=== PATIENT | female | born 1990 | race Two or more races ===

== ENCOUNTER 2016-08-22 07:05 | Emergency (ER) | payer OTHER ==
[2016-08-22 08:11] LABS: MEAN CORPUSCULAR HEMOGLOBIN 27.4 pg (27.0-33.0); MEAN CORPUSCULAR HGB CONC 32.4 g/dl (32.0-36.5); MEAN CORPUSCULAR VOLUME 84.7 fl (80.0-96.0); RED CELL DISTRIBUTION WIDTH 13.7 % (11.5-14.5); WHITE BLOOD COUNT 13.8 K/mm3 (4.0-10.0)
--- NOTE | 2016-08-22 09:10 | REP ---
FIRST TRIMESTER ULTRASOUND: Real-time sonographic evaluation of the gravid uterus performed. Transabdominal and endovaginal technique utilized. Large irregular gestational sac is seen in the endometrial cavity. Small pole is present measuring 6 mm. This would correspond to an estimated gestational age of 6 weeks 3 days. There is no heart motion. The gestational sac is much larger than expected for a 6 week gestation. Prior study of 07/15/2016 showed a living intrauterine gestation 6 weeks of age with heart rate of 93 beats per minute. Current findings are compatible with demise. Ovaries are normal in size and echotexture, right ovary measuring 3.1 x 2.1 x 2.1 cm and left ovary 2.8 x 2.0 x 2.0 cm. Blood flow is seen in each ovary with duplex Doppler evaluation, with no torsion. There is no adnexal mass or free fluid. IMPRESSION: Intrauterine demise. Large irregular gestational sac contains a pole 6 mm in length with no heart motion. Prior study of 07/15/2016 showed a living intrauterine gestation, estimated age 6 weeks with heart rate 93 beats per minute. Signed by Melquiades Jiang MD 08/22/2016 05:18 P
--- NOTE | 2016-08-22 13:44 | EDDOCDS ---
Nurse's Notes [facility] Name: Karla Greenwood Age: 25 yrs Sex: Female : 1990 Arrival Date: 08/22/2016 Time: 07:05 Bed 5 Private MD: Diagnosis: Missed Presentation: 08/22 07:14 Presenting complaint: Patient states: 11 weeks , cramping since last night mlb1 vaginal bleeding scant amount began this am. Risk factors: The patient reports no loss of conciousness prior to arrival. This patient has not had a hysterectomy. This patient has not begun menopause. Adult Sepsis Screening: The patient does not have new or worsening altered mentation. Patient's respiratory rate is less than 22. Systolic blood pressure is greater than 100. Patient has a qSOFA score of 0- Negative Sepsis Screen. Suicide/Homicide risk assessment- the patient denies having any suicidal and/or homicidal ideations and does not present with any other emotional, behavioral or mental health complaints. Status: The patient is a dependent. Transition of care: patient was not received from another setting of care. 07:14 Acuity: AMCKENZIE Level 3 mlb1 07:14 Method Of Arrival: Walkin/Carried/Asstd mlb1 Triage Assessment: 07:16 General: Appears in no apparent distress, Behavior is appropriate for age, cooperative. mlb1 Pain: Denies pain. HIV screening NA for this visit Offered previously. : Reports vaginal bleeding that is spotty. 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 Vitamin Oral once daily 2. Zofran (as hydrochloride) 4 mg Oral tab 4 mg every 8 hours as needed - PMHx: none; - PSHx: acl right knee; bone spur left ankle; D & C; - Social history: Smoking status: Patient states was never smoker of tobacco. No barriers to communication noted, The patient speaks fluent Rwandan, Speaks appropriately for age. - Family history: Not pertinent. - : The pt / caregiver states he / she is not on anticoagulants. Home medication list is obtained from the patient. - Exposure Risk Screening:: None identified. Screenin:54 Screening information is obtained from the patient. Fall risk: No risks identified. kr3 Assistance ADL's: requires no assistance with activities of daily living. Abuse/DV Screen: The patient / caregiver reports he/she is: not in a situation that causes fear, pain or injury. Nutritional screening: No deficits noted. Advance Directives: Currently, there is no health care proxy. home support is adequate. Assessment: 07:54 General: Appears in no apparent distress, comfortable, Behavior is appropriate for age, kr3 cooperative. Neurological: No deficits noted. Respiratory: Respiratory effort is even, unlabored. : deferred to provider Reports vaginal bleeding that is spotty. 08:56 Reassessment: Patient appears in no apparent distress at this time. awaiting test kr3 results. 09:15 Reassessment: Patient appears in no apparent distress at this time. kr3 10:10 Adult Sepsis Screening: The patient does not have new or worsening altered mentation. kr3 Patient's respiratory rate is less than 22. Systolic blood pressure is greater than 100. Patient has a qSOFA score of 0- Negative Sepsis Screen. 10:22 Reassessment: Patient appears in no apparent distress at this time. Pain: Location: kr3 abdomen Pain currently is 7 out of 10 on a pain scale. Quality of pain is described as crampy. 11:15 Reassessment: Patient appears in no apparent distress at this time. kr3 12:20 Reassessment: Patient appears in no apparent distress at this time. reports cramps are kr3 intermittent, at present none at worse 8/10. Reports has been up to bathroom times 1 and noticed bleeding on tissue after urinating. 12:21 Adult Sepsis Screening: The patient does not have new or worsening altered mentation. kr3 Patient's respiratory rate is less than 22. Systolic blood pressure is greater than 100. Patient has a qSOFA score of 0- Negative Sepsis Screen. Vital Signs: 07:17 BP 133 / 89; Pulse 80; Resp 16; Temp 97.6(TE); Pulse Ox 97% on R/A; Weight 81.65 kg mlb1 (R); Height 5 ft. 4 in. (162.56 cm) (R); Pain 0/10; 12:20 BP 137 / 83; Pulse 90; Resp 16; Temp 98.7(O); Pulse Ox 98% on R/A; Pain 0/10; kr3 13:41 BP 154 / 99; Pulse 80; Resp 16; Temp 97.0; jmk 07:17 Body Mass Index 30.90 (81.65 kg, 162.56 cm) [facility] Vitals: 07:17 Log In Time: August 22, 2016 at 07:05. [facility] ED Course: 07:07 Patient visited by Lincoln Kapadia Reg. pm4 07:07 Patient moved to Waiting pm4 07:14 Patient visited by Emre Matias, COURT. mlb1 07:15 Triage Initiated mlb1 07:17 Patient visited by Emre Matias, COURT. mlb1 07:40 Patient moved to 5 sd1 07:41 Carol Del Rio MD is Attending Physician. sd1 07:42 Patient visited by Carol Del Rio MD. sd1 07:54 The patient / caregiver is instructed regarding the plan of care and ED course. Patient cali has correct armband on for positive identification. Placed in gown. Bed in low position. Call light in reach. 08:01 Patient visited by Brendan Bourne PCA. jlf 08:01 Patient visited by Brendan Bourne PCA. jlf 08:01 Complete Blood Count Sent. jlf 08:01 Hcg, Serum Quantitative Sent. jlf 08:01 Type & Screen Sent. jlf 08:30 Assist provider with pelvic exam: Specimens sent to lab. Performed by Carol Del Rio MD Patient tolerated well. 08:35 Assist provider with pelvic exam: Set up pelvic tray. Specimens sent to lab. jlf 08:37 Patient visited by Brendan Bourne PCA. jlf 08:37 Wet Prep Sent. jlf 08:37 GC & Chlamydia Amplification Sent. jlf 08:38 Patient visited by Brendan Bourne PCA. jlf 08:38 Urinalysis Sent. jlf 08:38 Urine Culture Sent. jlf 09:10 Patient visited by Brendan Bourne PCA. jlf 09:46 US 1st trimester Returned. EDMS 09:46 TRANSVAGINAL US Returned. EDMS 09:51 Patient visited by Brendan Bourne PCA. jlf 10:22 Patient visited by Lucy Loaiza RN. kr3 11:23 [facility] Payment Agreement was scanned into [employer] and attached to record. lg 11:33 Patient visited by Brendan Bourne PCA. jlf 11:54 Patient visited by Brendan Bourne PCA. jlf 12:18 Patient visited by Brendan Bourne PCA. jlf 13:07 Patient visited by Lucy Loaiza RN. kr3 13:32 Martin, OB is Referral Physician. sd1 13:41 No IV's were initiated during this patient's visit. patk Order Results: Lab Order: Complete Blood Count; SPEC'M 08/22/16 07:54 Test: WHITE BLOOD COUNT; Value: 13.8; Range: 4.0-10.0; Abnormal: Above high normal; Units: K/mm3; Status: F Test: RED BLOOD COUNT; Value: 4.59; Range: 4.00-5.40; Units: M/mm3; Status: F Test: HEMOGLOBIN; Value: 12.6; Range: 12.0-16.0; Units: g/dl; Status: F Test: HEMATOCRIT; Value: 38.9; Range: 36.0-47.0; Units: %; Status: F Test: MEAN CORPUSCULAR VOLUME; Value: 84.7; Range: 80.0-96.0; Units: fl; Status: F Test: MEAN CORPUSCULAR HEMOGLOBIN; Value: 27.4; Range: 27.0-33.0; Units: pg; Status: F Test: MEAN CORPUSCULAR HGB CONC; Value: 32.4; Range: 32.0-36.5; Units: g/dl; Status: F Test: RED CELL DISTRIBUTION WIDTH; Value: 13.7; Range: 11.5-14.5; Units: %; Status: F Test: PLATELET COUNT, AUTOMATED; Value: 197; Range: 150-450; Units: k/mm3; Status: F Lab Order: Hcg, Serum Quantitative; SPEC'M 08/22/16 07:54 Test: HCG, SERUM QUANTITATIVE; Value: 4837; Units: MIU/ML; Status: F Test Note: ; GESTATIONAL AGE APPROXIMATE HCG RANGE (MIU/ML) 0.2-1 WEEK 5-50 1-2 WEEKS 50-500 2-3 WEEKS 100-5,000 3-4 WEEKS 500-10,000 4-5 WEEKS 1,000-50,000 5-6 WEEKS 10,000-100,000 6-8 WEEKS 15,000-200,000 2-3 MONTHS 10,000-100,000 NON FEMALES LESS THAN 3.0 Patient samples may contain human heterophilic antibodies that could react with immunoassays to give falsely elevated or depressed results. This assay has been designed to minimize interference from heterophilic antibodies. Elevated hCG levels have also been associated with trophoblastic disease and nontrophoblastic neoplasms. The possibility of having these diseases should be considered before a diagnosis of is made. This test is not intended for use as a surrogate marker for aiding in the diagnosis or monitoring the treatment of cancer patients. Siemens Crowd Analyzer methodology. Lab Order: Type & Screen; SPEC'M 08/22/16 07:54 Test: BLOOD TYPE; Value: O POS; Status: F Test: AB SCREEN (INDIRECT MADIE)GEL; Value: NEGATIVE; Status: F Lab Order: Urinalysis; SPEC'M 08/22/16 08:34 Test: APPEARANCE, URINE; Value: HAZY; Range: CLEAR; Status: F Test: COLOR, URINE; Value: YELLOW; Range: YELLOW; Status: F Test: PH,URINE; Value: 7.0; Range: 5.0-9.0; Units: UNITS; Status: F Test: SPECIFIC GRAVITY URINE AUTO; Value: 1.012; Range: 1.002-1.035; Status: F Test: PROTEIN, URINE AUTO; Value: NEGATIVE; Range: NEGATIVE; Units: mg/dL; Status: F Test: GLUCOSE, URINE (UA) AUTO; Value: NEGATIVE; Range: NEGATIVE; Units: mg/dL; Status: F Test: KETONE, URINE AUTO; Value: NEGATIVE; Range: NEGATIVE; Units: mg/dL; Status: F Test: UROBILINOGEN, URINE AUTO; Value: 0.2; Range: 0.0-2.0; Units: mg/dL; Status: F Test: BILIRUBIN, URINE AUTO; Value: NEGATIVE; Range: NEGATIVE; Status: F Test: NITRITE, URINE AUTO; Value: NEGATIVE; Range: NEGATIVE; Status: F Test: LEUKOCYTE ESTERASE, URINE AUTO; Value: NEGATIVE; Range: NEGATIVE; Status: F Test: BLOOD, URINE BLOOD; Value: 3+; Range: NEGATIVE; Abnormal: Above high normal; Status: F Test: WBC, URINE AUTO; Value: 3; Range: 0-3; Units: /HPF; Status: F Test: RBC, URINE AUTO; Value: 1; Range: 0-3; Units: /HPF; Status: F Test: BACTERIA, URINE AUTO; Value: 1+; Range: NEGATIVE; Abnormal: Above high normal; Status: F Test: SQUAMOUS EPITHELIAL CELL UR AU; Value: 4; Range: 0-6; Units: /HPF; Status: F Test: MUCUS, URINE; Value: SMALL; Range: NEGATIVE; Status: F Test: HYALINE CAST, URINE AUTO; Value: 0; Range: 0-1; Units: /LPF; Status: F Lab Order: GC & Chlamydia Amplification; SPEC'M 08/22/16 08:35 Test: CHLAMYDIA DNA AMPLIFICATION; Value: NEGATIVE; Range: NEGATIVE; Status: F Test: GC DNA AMPLIFICATION; Value: NEGATIVE; Range: NEGATIVE; Status: F Lab Order: Wet Prep; SPEC'M 08/22/16 08:35 Test: WET PREP; Value: WET PREP RESULT; Status: F Test: WET PREP; Value: MANY EPITHELIAL CELLS PRESENT; Status: F Test: WET PREP; Value: MANY RBC; Status: F Test: WET PREP; Value: MODERATE WBC; Status: F Test: WET PREP; Value: MANY LONG RODS PRESENT; Status: F Radiology Order: US 1st trimester Test: US 1st trimester REASON FOR EXAMINATION: Bleeding; FIRST TRIMESTER ULTRASOUND:; ; Real-time sonographic evaluation of the gravid uterus performed. Transabdominal; and endovaginal technique utilized. Large irregular gestational sac is seen in; the endometrial cavity. Small pole is present measuring 6 mm. This would; correspond to an estimated gestational age of 6 weeks 3 days. There is no heart; motion. The gestational sac is much larger than expected for a 6 week gestation.; Prior study of 07/15/2016 showed a living intrauterine gestation 6 weeks of age; with heart rate of 93 beats per minute. Current findings are compatible; with demise.; ; Ovaries are normal in size and echotexture, right ovary measuring 3.1 x 2.1 x 2.1; cm and left ovary 2.8 x 2.0 x 2.0 cm. Blood flow is seen in each ovary with; duplex Doppler evaluation, with no torsion. There is no adnexal mass or free; fluid.; ; IMPRESSION:; Intrauterine demise. Large irregular gestational sac contains a pole; 6 mm in length with no heart motion. Prior study of 07/15/2016 showed a living; intrauterine gestation, estimated age 6 weeks with heart rate 93 beats per; minute.; ; Unreviewed; Radiology Order: TRANSVAGINAL US Test: TRANSVAGINAL US REASON FOR EXAMINATION: EVAL UTERUS AND OVARIES; FIRST TRIMESTER ULTRASOUND:; ; Real-time sonographic evaluation of the gravid uterus performed. Transabdominal; and endovaginal technique utilized. Large irregular gestational sac is seen in; the endometrial cavity. Small pole is present measuring 6 mm. This would; correspond to an estimated gestational age of 6 weeks 3 days. There is no heart; motion. The gestational sac is much larger than expected for a 6 week gestation.; Prior study of 07/15/2016 showed a living intrauterine gestation 6 weeks of age; with heart rate of 93 beats per minute. Current findings are compatible; with demise.; ; Ovaries are normal in size and echotexture, right ovary measuring 3.1 x 2.1 x 2.1; cm and left ovary 2.8 x 2.0 x 2.0 cm. Blood flow is seen in each ovary with; duplex Doppler evaluation, with no torsion. There is no adnexal mass or free; fluid.; ; IMPRESSION:; Intrauterine demise. Large irregular gestational sac contains a pole; 6 mm in length with no heart motion. Prior study of 07/15/2016 showed a living; intrauterine gestation, estimated age 6 weeks with heart rate 93 beats per; minute.; ; Unreviewed; Outcome: 08:55 Ultrasound Study completed. kr3 13:32 Discharge ordered by Provider. sd1 13:41 Discharge Assessment: Patient awake, alert and oriented x 3. No cognitive and/or jmk functional deficits noted. Patient verbalized understanding of disposition instructions. patient administered narcotics - no. The following High Risk Discharge criteria are identified: None. Discharged to home ambulatory. Condition: good. Discharge instructions given to patient, Instructed on discharge instructions, follow up and referral plans. medication usage, Demonstrated understanding of instructions, medications, Pt was receptive of discharge instructions/ teaching. Property :Personal belongings accompany Pt. 13:42 Patient left the ED. constantine Signatures: Dispatcher [employer] EDMS Carol Del Rio MD MD sd1 Chay Martínez,RN RN Jackelyn Ramos, Reg Reg lg Emre Matias RN RN mlb1 Lucy Loaiza,RN RN kr3 Brendan Bourne, AKASH SHED HAND Lincoln Childress, Reg Reg pm4 MTDD
--- NOTE | 2016-08-22 13:44 | EDDOCDS ---
Physician Documentation [facility] Name: Karla Greenwood Age: 25 yrs Sex: Female : 1990 Arrival Date: 08/22/2016 Time: 07:05 Bed 5 Private MD: Disposition: 08/22/16 13:32 Discharged to Home/Self Care. Impression: Missed . - Condition is Stable. - Discharge Instructions: Miscarriage, [id number]. - Medication Reconciliation, Local Pharmacy Hours form. - Follow up: Vikram Pederson, OB; When: keep scheduled appointment tomorrow. - Problem is new. - Symptoms are unchanged. Historical: - Allergies: Oxycodone HCl (itchy); - Home Meds: 1. Vitamin Oral once daily 2. Zofran (as hydrochloride) 4 mg Oral tab 4 mg every 8 hours as needed - PMHx: none; - PSHx: acl right knee; bone spur left ankle; D & C; - Social history: Smoking status: Patient states was never smoker of tobacco. No barriers to communication noted, The patient speaks fluent Bulgarian, Speaks appropriately for age. - Family history: Not pertinent. - : The pt / caregiver states he / she is not on anticoagulants. Home medication list is obtained from the patient. - Exposure Risk Screening:: None identified. 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 4 in. (162.56 cm) (R); Pain 0/10; 12:20 BP 137 / 83; Pulse 90; Resp 16; Temp 98.7(O); Pulse Ox 98% on R/A; Pain 0/10; kr3 13:41 BP 154 / 99; Pulse 80; Resp 16; Temp 97.0; jmk 07:17 Body Mass Index 30.90 (81.65 kg, 162.56 cm) mlb1 MDM: 07:35 Complete Blood Count Ordered. EDMS 07:35 Hcg, Serum Quantitative Ordered. EDMS 07:35 Urinalysis Ordered. EDMS 07:35 Urine Culture Ordered. EDMS 07:36 Type & Screen Ordered. EDMS 07:36 US 1st trimester Ordered. EDMS 07:47 Set up pelvic ordered. sd1 08:33 TRANSVAGINAL US Ordered. EDMS 08:33 GC & Chlamydia Amplification Ordered. EDMS 08:33 Wet Prep Ordered. EDMS 08:44 Financial registration complete. lg 09:08 Complete Blood Count Reviewed. sd1 09:08 Hcg, Serum Quantitative Reviewed. sd1 09:08 Type & Screen Reviewed. sd1 09:08 Wet Prep Reviewed. sd1 09:14 Type & Screen Reviewed. sd1 09:26 Urinalysis Reviewed. sd1 11:23 [facility] Payment Agreement was scanned into [employer] and attached to record. lg 12:39 GC & Chlamydia Amplification Reviewed. sd1 12:39 US 1st trimester Reviewed. sd1 12:39 TRANSVAGINAL US Reviewed. sd1 Signatures: Dispatcher [employer] Carol Montero MD MD sd1 Chay Martínez,RN RN Jackelyn Ramos, Johny Reg lg Emre Matias RN RN mlb1 Lucy LoaizaRN RN kr3 The chart was reviewed and I authenticate all verbal orders and agree with the evaluation and treatment provided.Attachments: 11:23 [facility] Payment Agreement lg MTDD
--- NOTE | 2016-08-24 14:43 | EDDOCDS ---
Physician Documentation [facility] Name: Karla Greenwood Age: 25 yrs Sex: Female : 1990 Arrival Date: 08/22/2016 Time: 07:05 Bed 5 Private MD: Disposition: 08/22/16 13:32 Discharged to Home/Self Care. Impression: Missed . - Condition is Stable. - Discharge Instructions: Miscarriage, [id number]. - Medication Reconciliation, Local Pharmacy Hours form. - Follow up: Vikram Pederson, OB; When: keep scheduled appointment tomorrow. - Problem is new. - Symptoms are unchanged. Historical: - Allergies: Oxycodone HCl (itchy); - Home Meds: 1. Vitamin Oral once daily 2. Zofran (as hydrochloride) 4 mg Oral tab 4 mg every 8 hours as needed - PMHx: none; - PSHx: acl right knee; bone spur left ankle; D & C; - Social history: Smoking status: Patient states was never smoker of tobacco. No barriers to communication noted, The patient speaks fluent Panamanian, Speaks appropriately for age. - Family history: Not pertinent. - : The pt / caregiver states he / she is not on anticoagulants. Home medication list is obtained from the patient. - Exposure Risk Screening:: None identified. 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 4 in. (162.56 cm) (R); Pain 0/10; 12:20 BP 137 / 83; Pulse 90; Resp 16; Temp 98.7(O); Pulse Ox 98% on R/A; Pain 0/10; kr3 13:41 BP 154 / 99; Pulse 80; Resp 16; Temp 97.0; jmk 07:17 Body Mass Index 30.90 (81.65 kg, 162.56 cm) mlb1 MDM: 07:35 Complete Blood Count Ordered. EDMS 07:35 Hcg, Serum Quantitative Ordered. EDMS 07:35 Urinalysis Ordered. EDMS 07:35 Urine Culture Ordered. EDMS 07:36 Type & Screen Ordered. EDMS 07:36 US 1st trimester Ordered. EDMS 07:47 Set up pelvic ordered. sd1 08:33 TRANSVAGINAL US Ordered. EDMS 08:33 GC & Chlamydia Amplification Ordered. EDMS 08:33 Wet Prep Ordered. EDMS 08:44 Financial registration complete. lg 09:08 Complete Blood Count Reviewed. sd1 09:08 Hcg, Serum Quantitative Reviewed. sd1 09:08 Type & Screen Reviewed. sd1 09:08 Wet Prep Reviewed. sd1 09:14 Type & Screen Reviewed. sd1 09:26 Urinalysis Reviewed. sd1 11:23 [facility] Payment Agreement was scanned into [employer] and attached to record. lg 12:39 GC & Chlamydia Amplification Reviewed. sd1 12:39 US 1st trimester Reviewed. sd1 12:39 TRANSVAGINAL US Reviewed. sd1 08/24 11:41 T-Sheet-- Draft Copy was scanned into [employer] and attached to record. gb Signatures: Dispatcher [employer] Carol Montero MD MD sd1 Chay Martínez,RN RN Amanda Marcial, Reg Reg gb Jackelyn aMya, Reg Reg lg Emre Matias RN RN mlb1 Lucy Loaiza,RN RN kr3 The chart was reviewed and I authenticate all verbal orders and agree with the evaluation and treatment provided.Attachments: 08/22 11:23 [facility] Payment Agreement lg 08/24 11:41 T-Sheet-- Draft Copy gb Chart Complete MTDD
--- NOTE | 2016-08-24 14:44 | EDDOCDS ---
Nurse's Notes [facility] Name: Karla Greenwood Age: 25 yrs Sex: Female : 1990 Arrival Date: 08/22/2016 Time: 07:05 Bed 5 Private MD: Diagnosis: Missed Presentation: 08/22 07:14 Presenting complaint: Patient states: 11 weeks , cramping since last night mlb1 vaginal bleeding scant amount began this am. Risk factors: The patient reports no loss of conciousness prior to arrival. This patient has not had a hysterectomy. This patient has not begun menopause. Adult Sepsis Screening: The patient does not have new or worsening altered mentation. Patient's respiratory rate is less than 22. Systolic blood pressure is greater than 100. Patient has a qSOFA score of 0- Negative Sepsis Screen. Suicide/Homicide risk assessment- the patient denies having any suicidal and/or homicidal ideations and does not present with any other emotional, behavioral or mental health complaints. Status: The patient is a dependent. Transition of care: patient was not received from another setting of care. 07:14 Acuity: MACKENZIE Level 3 mlb1 07:14 Method Of Arrival: Walkin/Carried/Asstd mlb1 Triage Assessment: 07:16 General: Appears in no apparent distress, Behavior is appropriate for age, cooperative. mlb1 Pain: Denies pain. HIV screening NA for this visit Offered previously. : Reports vaginal bleeding that is spotty. 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 Vitamin Oral once daily 2. Zofran (as hydrochloride) 4 mg Oral tab 4 mg every 8 hours as needed - PMHx: none; - PSHx: acl right knee; bone spur left ankle; D & C; - Social history: Smoking status: Patient states was never smoker of tobacco. No barriers to communication noted, The patient speaks fluent Macanese, Speaks appropriately for age. - Family history: Not pertinent. - : The pt / caregiver states he / she is not on anticoagulants. Home medication list is obtained from the patient. - Exposure Risk Screening:: None identified. Screenin:54 Screening information is obtained from the patient. Fall risk: No risks identified. kr3 Assistance ADL's: requires no assistance with activities of daily living. Abuse/DV Screen: The patient / caregiver reports he/she is: not in a situation that causes fear, pain or injury. Nutritional screening: No deficits noted. Advance Directives: Currently, there is no health care proxy. home support is adequate. Assessment: 07:54 General: Appears in no apparent distress, comfortable, Behavior is appropriate for age, kr3 cooperative. Neurological: No deficits noted. Respiratory: Respiratory effort is even, unlabored. : deferred to provider Reports vaginal bleeding that is spotty. 08:56 Reassessment: Patient appears in no apparent distress at this time. awaiting test kr3 results. 09:15 Reassessment: Patient appears in no apparent distress at this time. kr3 10:10 Adult Sepsis Screening: The patient does not have new or worsening altered mentation. kr3 Patient's respiratory rate is less than 22. Systolic blood pressure is greater than 100. Patient has a qSOFA score of 0- Negative Sepsis Screen. 10:22 Reassessment: Patient appears in no apparent distress at this time. Pain: Location: kr3 abdomen Pain currently is 7 out of 10 on a pain scale. Quality of pain is described as crampy. 11:15 Reassessment: Patient appears in no apparent distress at this time. kr3 12:20 Reassessment: Patient appears in no apparent distress at this time. reports cramps are kr3 intermittent, at present none at worse 8/10. Reports has been up to bathroom times 1 and noticed bleeding on tissue after urinating. 12:21 Adult Sepsis Screening: The patient does not have new or worsening altered mentation. kr3 Patient's respiratory rate is less than 22. Systolic blood pressure is greater than 100. Patient has a qSOFA score of 0- Negative Sepsis Screen. Vital Signs: 07:17 BP 133 / 89; Pulse 80; Resp 16; Temp 97.6(TE); Pulse Ox 97% on R/A; Weight 81.65 kg mlb1 (R); Height 5 ft. 4 in. (162.56 cm) (R); Pain 0/10; 12:20 BP 137 / 83; Pulse 90; Resp 16; Temp 98.7(O); Pulse Ox 98% on R/A; Pain 0/10; kr3 13:41 BP 154 / 99; Pulse 80; Resp 16; Temp 97.0; jmk 07:17 Body Mass Index 30.90 (81.65 kg, 162.56 cm) [facility] Vitals: 07:17 Log In Time: August 22, 2016 at 07:05. [facility] ED Course: 07:07 Patient visited by Lincoln Kapadia Reg. pm4 07:07 Patient moved to Waiting pm4 07:14 Patient visited by Emre Matias, COURT. mlb1 07:15 Triage Initiated mlb1 07:17 Patient visited by Emre Matias, COURT. mlb1 07:40 Patient moved to 5 sd1 07:41 Carol Del Rio MD is Attending Physician. sd1 07:42 Patient visited by Carol Del Rio MD. sd1 07:54 The patient / caregiver is instructed regarding the plan of care and ED course. Patient cali has correct armband on for positive identification. Placed in gown. Bed in low position. Call light in reach. 08:01 Patient visited by Brendan Bourne PCA. jlf 08:01 Patient visited by Brendan Buorne PCA. jlf 08:01 Complete Blood Count Sent. jlf 08:01 Hcg, Serum Quantitative Sent. jlf 08:01 Type & Screen Sent. jlf 08:30 Assist provider with pelvic exam: Specimens sent to lab. Performed by Carol Del Rio MD Patient tolerated well. 08:35 Assist provider with pelvic exam: Set up pelvic tray. Specimens sent to lab. jlf 08:37 Patient visited by Brendan Bourne PCA. jlf 08:37 Wet Prep Sent. jlf 08:37 GC & Chlamydia Amplification Sent. jlf 08:38 Patient visited by Brendan Bourne PCA. jlf 08:38 Urinalysis Sent. jlf 08:38 Urine Culture Sent. jlf 09:10 Patient visited by Brendan Bourne PCA. jlf 09:46 US 1st trimester Returned. EDMS 09:46 TRANSVAGINAL US Returned. EDMS 09:51 Patient visited by Brendan Bourne PCA. jlf 10:22 Patient visited by Lucy Loaiza RN. kr3 11:23 [facility] Payment Agreement was scanned into [employer] and attached to record. lg 11:33 Patient visited by Brendan Bourne PCA. jlf 11:54 Patient visited by Brendan Bourne PCA. jlf 12:18 Patient visited by Brendan Bourne PCA. jlf 13:07 Patient visited by Lucy Loaiza RN. kr3 13:32 [place], OB is Referral Physician. sd1 13:41 No IV's were initiated during this patient's visit. jmk 17:25 US 1st trimester Returned. EDMS 17:25 TRANSVAGINAL US Returned. EDMS 08/24 11:41 T-Sheet-- Draft Copy was scanned into [employer] and attached to record. gb Order Results: Lab Order: Complete Blood Count; SPEC'M 08/22/16 07:54 Test: WHITE BLOOD COUNT; Value: 13.8; Range: 4.0-10.0; Abnormal: Above high normal; Units: K/mm3; Status: F Test: RED BLOOD COUNT; Value: 4.59; Range: 4.00-5.40; Units: M/mm3; Status: F Test: HEMOGLOBIN; Value: 12.6; Range: 12.0-16.0; Units: g/dl; Status: F Test: HEMATOCRIT; Value: 38.9; Range: 36.0-47.0; Units: %; Status: F Test: MEAN CORPUSCULAR VOLUME; Value: 84.7; Range: 80.0-96.0; Units: fl; Status: F Test: MEAN CORPUSCULAR HEMOGLOBIN; Value: 27.4; Range: 27.0-33.0; Units: pg; Status: F Test: MEAN CORPUSCULAR HGB CONC; Value: 32.4; Range: 32.0-36.5; Units: g/dl; Status: F Test: RED CELL DISTRIBUTION WIDTH; Value: 13.7; Range: 11.5-14.5; Units: %; Status: F Test: PLATELET COUNT, AUTOMATED; Value: 197; Range: 150-450; Units: k/mm3; Status: F Lab Order: Hcg, Serum Quantitative; SPEC'M 08/22/16 07:54 Test: HCG, SERUM QUANTITATIVE; Value: 4837; Units: MIU/ML; Status: F Test Note: ; GESTATIONAL AGE APPROXIMATE HCG RANGE (MIU/ML) 0.2-1 WEEK 5-50 1-2 WEEKS 50-500 2-3 WEEKS 100-5,000 3-4 WEEKS 500-10,000 4-5 WEEKS 1,000-50,000 5-6 WEEKS 10,000-100,000 6-8 WEEKS 15,000-200,000 2-3 MONTHS 10,000-100,000 NON FEMALES LESS THAN 3.0 Patient samples may contain human heterophilic antibodies that could react with immunoassays to give falsely elevated or depressed results. This assay has been designed to minimize interference from heterophilic antibodies. Elevated hCG levels have also been associated with trophoblastic disease and nontrophoblastic neoplasms. The possibility of having these diseases should be considered before a diagnosis of is made. This test is not intended for use as a surrogate marker for aiding in the diagnosis or monitoring the treatment of cancer patients. [email or web address] methodology. Lab Order: Type & Screen; SPEC'M 08/22/16 07:54 Test: BLOOD TYPE; Value: O POS; Status: F Test: AB SCREEN (INDIRECT MADIE)GEL; Value: NEGATIVE; Status: F Lab Order: Urinalysis; SPEC'M 08/22/16 08:34 Test: APPEARANCE, URINE; Value: HAZY; Range: CLEAR; Status: F Test: COLOR, URINE; Value: YELLOW; Range: YELLOW; Status: F Test: PH,URINE; Value: 7.0; Range: 5.0-9.0; Units: UNITS; Status: F Test: SPECIFIC GRAVITY URINE AUTO; Value: 1.012; Range: 1.002-1.035; Status: F Test: PROTEIN, URINE AUTO; Value: NEGATIVE; Range: NEGATIVE; Units: mg/dL; Status: F Test: GLUCOSE, URINE (UA) AUTO; Value: NEGATIVE; Range: NEGATIVE; Units: mg/dL; Status: F Test: KETONE, URINE AUTO; Value: NEGATIVE; Range: NEGATIVE; Units: mg/dL; Status: F Test: UROBILINOGEN, URINE AUTO; Value: 0.2; Range: 0.0-2.0; Units: mg/dL; Status: F Test: BILIRUBIN, URINE AUTO; Value: NEGATIVE; Range: NEGATIVE; Status: F Test: NITRITE, URINE AUTO; Value: NEGATIVE; Range: NEGATIVE; Status: F Test: LEUKOCYTE ESTERASE, URINE AUTO; Value: NEGATIVE; Range: NEGATIVE; Status: F Test: BLOOD, URINE BLOOD; Value: 3+; Range: NEGATIVE; Abnormal: Above high normal; Status: F Test: WBC, URINE AUTO; Value: 3; Range: 0-3; Units: /HPF; Status: F Test: RBC, URINE AUTO; Value: 1; Range: 0-3; Units: /HPF; Status: F Test: BACTERIA, URINE AUTO; Value: 1+; Range: NEGATIVE; Abnormal: Above high normal; Status: F Test: SQUAMOUS EPITHELIAL CELL UR AU; Value: 4; Range: 0-6; Units: /HPF; Status: F Test: MUCUS, URINE; Value: SMALL; Range: NEGATIVE; Status: F Test: HYALINE CAST, URINE AUTO; Value: 0; Range: 0-1; Units: /LPF; Status: F Lab Order: Urine Culture; SPEC'M 08/22/16 08:34 Test: URINE CULTURE; Value: URINE CULTURE RESULT NO GROWTH; Status: F Lab Order: GC & Chlamydia Amplification; SPEC'M 08/22/16 08:35 Test: CHLAMYDIA DNA AMPLIFICATION; Value: NEGATIVE; Range: NEGATIVE; Status: F Test: GC DNA AMPLIFICATION; Value: NEGATIVE; Range: NEGATIVE; Status: F Lab Order: Wet Prep; SPEC'M 08/22/16 08:35 Test: WET PREP; Value: WET PREP RESULT; Status: F Test: WET PREP; Value: MANY EPITHELIAL CELLS PRESENT; Status: F Test: WET PREP; Value: MANY RBC; Status: F Test: WET PREP; Value: MODERATE WBC; Status: F Test: WET PREP; Value: MANY LONG RODS PRESENT; Status: F Radiology Order: US 1st trimester Test: US 1st trimester REASON FOR EXAMINATION: Bleeding; FIRST TRIMESTER ULTRASOUND:; ; Real-time sonographic evaluation of the gravid uterus performed. Transabdominal; and endovaginal technique utilized. Large irregular gestational sac is seen in; the endometrial cavity. Small pole is present measuring 6 mm. This would; correspond to an estimated gestational age of 6 weeks 3 days. There is no heart; motion. The gestational sac is much larger than expected for a 6 week gestation.; Prior study of 07/15/2016 showed a living intrauterine gestation 6 weeks of age; with heart rate of 93 beats per minute. Current findings are compatible; with demise.; ; Ovaries are normal in size and echotexture, right ovary measuring 3.1 x 2.1 x 2.1; cm and left ovary 2.8 x 2.0 x 2.0 cm. Blood flow is seen in each ovary with; duplex Doppler evaluation, with no torsion. There is no adnexal mass or free; fluid.; ; IMPRESSION:; ; Intrauterine demise. Large irregular gestational sac contains a pole; 6 mm in length with no heart motion. Prior study of 07/15/2016 showed a living; intrauterine gestation, estimated age 6 weeks with heart rate 93 beats per; minute.; ; ; Signed by; Melquiades Jiang MD 08/22/2016 05:18 P; Radiology Order: TRANSVAGINAL US Test: TRANSVAGINAL US REASON FOR EXAMINATION: EVAL UTERUS AND OVARIES; FIRST TRIMESTER ULTRASOUND:; ; Real-time sonographic evaluation of the gravid uterus performed. Transabdominal; and endovaginal technique utilized. Large irregular gestational sac is seen in; the endometrial cavity. Small pole is present measuring 6 mm. This would; correspond to an estimated gestational age of 6 weeks 3 days. There is no heart; motion. The gestational sac is much larger than expected for a 6 week gestation.; Prior study of 07/15/2016 showed a living intrauterine gestation 6 weeks of age; with heart rate of 93 beats per minute. Current findings are compatible; with demise.; ; Ovaries are normal in size and echotexture, right ovary measuring 3.1 x 2.1 x 2.1; cm and left ovary 2.8 x 2.0 x 2.0 cm. Blood flow is seen in each ovary with; duplex Doppler evaluation, with no torsion. There is no adnexal mass or free; fluid.; ; IMPRESSION:; ; Intrauterine demise. Large irregular gestational sac contains a pole; 6 mm in length with no heart motion. Prior study of 07/15/2016 showed a living; intrauterine gestation, estimated age 6 weeks with heart rate 93 beats per; minute.; ; ; Signed by; Melquiades Jiang MD 08/22/2016 05:18 P; Outcome: 08/22 08:55 Ultrasound Study completed. kr3 13:32 Discharge ordered by Provider. sd1 13:41 Discharge Assessment: Patient awake, alert and oriented x 3. No cognitive and/or jmk functional deficits noted. Patient verbalized understanding of disposition instructions. patient administered narcotics - no. The following High Risk Discharge criteria are identified: None. Discharged to home ambulatory. Condition: good. Discharge instructions given to patient, Instructed on discharge instructions, follow up and referral plans. medication usage, Demonstrated understanding of instructions, medications, Pt was receptive of discharge instructions/ teaching. Property :Personal belongings accompany Pt. 13:42 Patient left the ED. constantine Signatures: Dispatcher [employer] EDMS Carol Del Rio MD MD sd1 Chay Martínez,RN RN Amanda Marcial, Reg Reg gb Jackelyn Maya, Reg Reg lg Emre Matias RN RN mlb1 Lucy Loaiza,RN RN kr3 Brendan Bourne, [facility] CARDIOVASCULAR LAB DIRECTOR Lincoln Childress, Reg Reg pm4 Chart Complete BETH
--- NOTE | 2016-08-24 14:44 | EDDOCDS ---
Physician Documentation [facility] Name: Karla Greenwood Age: 25 yrs Sex: Female : 1990 Arrival Date: 08/22/2016 Time: 07:05 Bed 5 Private MD: Disposition: 08/22/16 13:32 Discharged to Home/Self Care. Impression: Missed . - Condition is Stable. - Discharge Instructions: Miscarriage, [id number]. - Medication Reconciliation, Local Pharmacy Hours form. - Follow up: Vikram Pederson, OB; When: keep scheduled appointment tomorrow. - Problem is new. - Symptoms are unchanged. Historical: - Allergies: Oxycodone HCl (itchy); - Home Meds: 1. Vitamin Oral once daily 2. Zofran (as hydrochloride) 4 mg Oral tab 4 mg every 8 hours as needed - PMHx: none; - PSHx: acl right knee; bone spur left ankle; D & C; - Social history: Smoking status: Patient states was never smoker of tobacco. No barriers to communication noted, The patient speaks fluent Welsh, Speaks appropriately for age. - Family history: Not pertinent. - : The pt / caregiver states he / she is not on anticoagulants. Home medication list is obtained from the patient. - Exposure Risk Screening:: None identified. 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 4 in. (162.56 cm) (R); Pain 0/10; 12:20 BP 137 / 83; Pulse 90; Resp 16; Temp 98.7(O); Pulse Ox 98% on R/A; Pain 0/10; kr3 13:41 BP 154 / 99; Pulse 80; Resp 16; Temp 97.0; jmk 07:17 Body Mass Index 30.90 (81.65 kg, 162.56 cm) mlb1 MDM: 07:35 Complete Blood Count Ordered. EDMS 07:35 Hcg, Serum Quantitative Ordered. EDMS 07:35 Urinalysis Ordered. EDMS 07:35 Urine Culture Ordered. EDMS 07:36 Type & Screen Ordered. EDMS 07:36 US 1st trimester Ordered. EDMS 07:47 Set up pelvic ordered. sd1 08:33 TRANSVAGINAL US Ordered. EDMS 08:33 GC & Chlamydia Amplification Ordered. EDMS 08:33 Wet Prep Ordered. EDMS 08:44 Financial registration complete. lg 09:08 Complete Blood Count Reviewed. sd1 09:08 Hcg, Serum Quantitative Reviewed. sd1 09:08 Type & Screen Reviewed. sd1 09:08 Wet Prep Reviewed. sd1 09:14 Type & Screen Reviewed. sd1 09:26 Urinalysis Reviewed. sd1 11:23 [facility] [place] Agreement was scanned into [employer] and attached to record. lg 12:39 GC & Chlamydia Amplification Reviewed. sd1 12:39 US 1st trimester Reviewed. sd1 12:39 TRANSVAGINAL US Reviewed. sd1 08/24 11:41 T-Sheet-- Draft Copy was scanned into [employer] and attached to record. gb Signatures: Dispatcher [employer] Carol Montero MD MD sd1 Chay Martínez,RN RN Amanda Marcial, Reg Reg gb Jackelyn Maya, Reg Reg lg Emre Matias RN RN mlb1 Lucy Loaiza,RN RN kr3 The chart was reviewed and I authenticate all verbal orders and agree with the evaluation and treatment provided.Attachments: 08/22 11:23 [facility] Payment Agreement lg 08/24 11:41 T-Sheet-- Draft Copy gb Chart Complete MTDD
== END 2016-08-22 13:42 | disposition home or self-care (01) ==
LOC: M ED 07:05
DX: O02.1 Missed abortion (principal); Z88.5 Allergy status to narcotic agent

== ENCOUNTER 2016-09-15 20:25 | Observation (INO) | payer OTHER ==
[~2016-09-15] VITALS: Ht 162.6 cm; Wt 78.5 kg
[2016-09-15 22:22] LABS: BASO # 0.1 K/mm3 (0.0-0.2); BASO % 0.6 % (0.0-1.0); EOS # 0.2 K/mm3 (0.0-0.50); LARGE UNSTAINED CELL # 0.3 K/mm3 (0.0-0.4); LARGE UNSTAINED CELL % 2.3 % (0.0-4.0); LYMPH % 35.4 % (24.0-44.0); MEAN CORPUSCULAR HGB CONC 31.9 g/dl (32.0-36.5); MEAN CORPUSCULAR VOLUME 84.6 fl (80.0-96.0); MONO # 0.5 K/mm3 (0.0-0.8); MONO % 4.4 % (0.0-5.0); NEUTROPHILS # 6.2 K/mm3 (1.8-7.7); NEUTROPHILS % 55.2 % (36.0-66.0); PLATELET COUNT, AUTOMATED 269 k/mm3 (150-450); RED CELL DISTRIBUTION WIDTH 12.3 % (11.5-14.5); WHITE BLOOD COUNT 11.3 K/mm3 (4.0-10.0)
[2016-09-15 22:47] LABS: ANION GAP 9 MEQ/L (8-16); BLOOD UREA NITROGEN 10 MG/DL (7-18); CALCIUM LEVEL 8.9 MG/DL (8.5-10.1); CARBON DIOXIDE LEVEL 27 MEQ/L (21-32); CHLORIDE LEVEL 104 MEQ/L (98-107); CREATININE FOR GFR 0.78 MG/DL (0.55-1.02); GLOMERULAR FILTRATION RATE > 60.0 (>60); GLUCOSE, FASTING 93 MG/DL (70-105); HCG, SERUM QUANTITATIVE 100 MIU/ML; POTASSIUM SERUM 3.5 MEQ/L (3.5-5.1); SODIUM LEVEL 140 MEQ/L (136-145)
[2016-09-16] VITALS (7 sets, daily range): BP systolic 115–137; BP diastolic 70–89
--- NOTE | 2016-09-16 00:30 | REPUSA ---
CLINICAL HISTORY: Bleeding, r/p RPOC.. . TECHNIQUE: Transabdominal ultrasound of the pelvis was performed. FINDINGS: The uterus is anteverted. Endometrial thickness is 33 mm which is hypervascuar. There is no IUP. Both ovaries are identified without adnexal mass or pelvic fluid collection. IMPRESSION: Endometrial thickness is 33 mm which is hypervascuar. This is compatible with RPOC.
[2016-09-16] MEDS ORDERED: PROPOFOL 200 MG/20 ML VIAL As Ordered ONE ×2 (01:26→02:32)
[2016-09-16] MEDS ORDERED: LIDOCAINE 2% INJ 100 MG/5 ML SDV (FOR ANES.) As Ordered ONE (01:26)
[2016-09-16] MEDS ORDERED: fentaNYL 100 MCG/2 ML INJECTION (J3010) As Ordered ONE ×2 (01:27→03:00)
[2016-09-16] MEDS ORDERED: MIDAZOLAM INJ 2 MG/2 ML VIAL (J2250) As Ordered ONE (01:27)
[2016-09-16] MEDS ORDERED: DOXYCYCLINE HYCLATE 100 MG/10 ML VIAL As Ordered ONE (01:51)
--- NOTE | 2016-09-16 01:54 | IPNPDOC ---
Text Note Date of Service The patient was seen on 09/16/16 at 01:52. NOTE ER Consultation/Surgical H&P Karla Greenwood is a with known ongoing sab previously diagnosed in clinic and managed expectantly who presents overnight with heavy bleeding. She states her bleeding over the past few weeks has been light to moderate, but tonight became extremely heavy to the point of soaking more than a pad an hour. She was lightheaded and dizzy prior to arrival. Hcg one week ago was 400. ROS: denies fevers/chills/nausea/vomiting/syncope History: OBhx: : ectopic in 2008 treated with methotrexate G2: current, mab Department Administrator: no abnormal papsmears, no STDs PMhx: benign Surgical: right ACL, left ankle bone spur removal Social: no tobacco/ETOH/illicit drug use. 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 Endometrial thickness is 33mm which is hypervascular. There is no IUP. Both ovaries identified without adnexal mass or pelvic fluid collection. Impression- compatible with RPOC Assessment: Karla Greenwood is a with mab and heavy bleeding on presentation with confirmed endometrial thickness of 33mm consistent with retained products of conception. Quant has been appropriately dropping as she has been expectantly managed, however she needs surgical intervention for resolution of this process given the thickness of her endometrial lining and continued bleeding. Her WBC count is also slightly elevated, which warrants intervention at this time. We discussed the risks/benefits/alternatives of suction D&C and patient desires to proceed. Last ate at 4pm. Plan: -Suction D&C when OR available -100mg IV doxycycline x1 pre-operatively -If all discharge criteria met, will go home same day with follow-up with me in 1-[address] David Frost MD KeymarDacia CONNELLY VS,Jarrett, I+O VS, Jarrett I+O Laboratory Tests 09/15/16 22:06 Calcium Level 8.9, Red Blood Count 4.94, Mean Corpuscular Volume 84.6, Mean Corpuscular Hemoglobin 27.0, Mean Corpuscular Hemoglobin Concent 31.9 L, Red Cell Distribution Width 12.3, Neutrophils (%) (Auto) 55.2, Lymphocytes (%) (Auto ) 35.4, Monocytes (%) (Auto) 4.4, Eosinophils (%) (Auto) 2.0, Basophils (%) ( Auto) 0.6, Neutrophils # (Auto) 6.2, Lymphocytes # (Auto) 4.0, Monocytes # (Auto ) 0.5, Eosinophils # (Auto) 0.2, Basophils # (Auto) 0.1 DAVID FROST MD Sep 16, 2016 01:53
--- NOTE | 2016-09-16 01:59 | EDDOCDS ---
Physician Documentation [facility] Name: Karla Greenwood Age: 25 yrs Sex: Female : 1990 Arrival Date: 09/15/2016 Time: 20:25 Bed I2 / M2 Private MD: Gregorio [facility] Disposition: 09/16/16 00:50 Hospitalization ordered by Vikram Pederson OB for Inpatient Admission. Preliminary diagnosis is Retained portions of placenta and membranes, without hemorrhage. - Bed requested for Admit. - Status is Inpatient Admission. jmb - Condition is Stable. - Problem is new. - Symptoms have improved. Historical: - Allergies: Oxycodone HCl (itchy); - Home Meds: 1. none - PMHx: none; - PSHx: acl right knee; bone spur left ankle; D & C; - Social history: Smoking status: Patient states was never smoker of tobacco. No barriers to communication noted, The patient speaks fluent [place]. - Family history: Not pertinent. - : The pt / caregiver states he / she is not on anticoagulants. Home medication list is obtained from the patient. - Exposure Risk Screening:: None identified. 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 4 in. (162.56 cm) (R); Pain 5/10; 22:15 BP 150 / 98 (man/); ms18 09/16 01:33 BP 156 / 92; Pulse 88; Resp 18; Temp 97.6(O); Pulse Ox 97% on R/A; Pain 0/10; jmb 09/15 20:27 Body Mass Index 29.70 (78.47 kg, 162.56 cm) elp MDM: 09/15 21:59 IV Saline Lock ordered. ck7 21:59 NS 0.9% 1000 ml IV at bolus once ordered. ck7 21:59 Set up pelvic ordered. ck7 21:59 Recheck B/P ordered. ck7 22:01 US 1st trimester Ordered. EDMS 22:01 CBC with Diff Ordered. EDMS 22:01 MED Profile Ordered. EDMS 22:01 Type & Screen Ordered. EDMS 22:01 Hcg, Serum Quantitative Ordered. EDMS 23:25 CBC with Diff Reviewed. ck7 23:25 MED Profile Reviewed. ck7 23:25 Type & Screen Reviewed. ck7 23:25 Hcg, Serum Quantitative Reviewed. ck7 23:43 Financial registration complete. hs2 09/16 00:03 [facility] Payment Agreement was scanned into [employer] and attached to record. hs2 01:50 Admission Orders was scanned into [employer] and attached to record. hs2 Administered Medications: 09/15 22:10 Drug: NS 0.9% 1000 ml [sodium chloride 0.9 % intravenous solution] Route: IV; Rate: jmb bolus; Site: right antecubital; Signatures: Dispatcher [employer] Shellie Moreno RN RN rs3 Chauncey De La Cruz, RPA-C RPA-Cck7 Brendan Watson RN RN jmb Naheed Turcios, Reg Reg hs2 The chart was reviewed and I authenticate all verbal orders and agree with the evaluation and treatment provided.Attachments: 09/16 00:03 [facility] Payment Agreement hs2 01:50 Admission Orders hs2 MTDD
--- NOTE | 2016-09-16 02:00 | EDDOCDS ---
Nurse's Notes [facility] Name: Karla Greenwood Age: 25 yrs Sex: Female : 1990 Arrival Date: 09/15/2016 Time: 20:25 Bed I2 / M2 Private MD: Gregorio [facility] [place] Diagnosis: Retained portions of placenta and membranes, without hemorrhage Presentation: 09/15 20:32 Presenting complaint: Patient states: was seen here 4 weeks ago for miscarriage. 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 last count was 400 a week and a half ago. vaginal bleeding has been very minimal. heavy bleeding 30 mts ago, changed 3 joselin pads. reports of dizziness/abdominal cramping. Risk factors: The patient reports no loss of conciousness prior to arrival. This patient has not had a hysterectomy. This patient has not begun menopause. Adult Sepsis Screening: The patient does not have new or worsening altered mentation. Patient's respiratory rate is less than 22. Systolic blood pressure is greater than 100. Patient has a qSOFA score of 0- Negative Sepsis Screen. Suicide/Homicide risk assessment- the patient denies having any suicidal and/or homicidal ideations and does not present with any other emotional, behavioral or mental health complaints. Status: The patient is a dependent. Transition of care: patient was not received from another setting of care. 20:32 Acuity: MACKENZIE Level 3 rs3 20:32 Method Of Arrival: Walkin/Carried/Asstd rs3 Triage Assessment: 20:37 General: Appears in no apparent distress. Pain: Location: suprapubic area, right lower rs3 quadrant and left lower quadrant. Pt Declines HIV testing. : Reports vaginal bleeding that is heavy flow. 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 none - PMHx: none; - PSHx: acl right knee; bone spur left ankle; D & C; - Social history: Smoking status: Patient states was never smoker of tobacco. No barriers to communication noted, The patient speaks fluent Malaysian. - Family history: Not pertinent. - : The pt / caregiver states he / she is not on anticoagulants. Home medication list is obtained from the patient. - Exposure Risk Screening:: None identified. Screenin:10 Screening information is obtained from the patient. Fall risk: No risks identified. jmb Assistance ADL's: requires no assistance with activities of daily living. Abuse/DV Screen: The patient / caregiver reports he/she is: not in a situation that causes fear, pain or injury. Nutritional screening: No deficits noted. home support is adequate. 09/16 01:34 Advance Directives: Currently, there is no health care proxy. There is no active DNR jmb order. There is no living will. There is no Power of He[place]. Assessment: 09/15 22:10 General: Appears uncomfortable, Behavior is appropriate for age, cooperative. Pain: jmb Location: abdomen and left lower quadrant and right lower quadrant and suprapubic area Pain currently is 8 out of 10 on a pain scale. Neurological: Level of Consciousness is awake, alert, obeys commands, Oriented to person, place, time, Income Tax Advisor are equal bilaterally Speech is normal, Facial symmetry appears normal, Facial symmetry: tongue is midline. Cardiovascular: Capillary refill < 3 seconds Heart tones present Pulses are all present. Rhythm is regular. Respiratory: Airway is patent Respiratory effort is even, unlabored, Respiratory pattern is regular, symmetrical, Breath sounds are clear bilaterally. GI: Abdomen is non- distended Bowel sounds present X 4 quads. Abd is soft X 4 quads. : Patient reports 4 wet pads in one hour of blood. Derm: Skin is pink, warm & dry. Musculoskeletal: Range of motion intact in all extremities. 22:57 General: Appears in no apparent distress, comfortable, Behavior is appropriate for age, jmb cooperative. Neurological: Level of Consciousness is awake, alert, obeys commands, Oriented to person, place, time. Respiratory: Airway is patent Respiratory effort is even, unlabored, Respiratory pattern is regular, symmetrical. 23:31 General: Appears in no apparent distress, comfortable, Behavior is appropriate for age, jmb cooperative, Patient sitting on side of bed. No voiced complaints at this time. . Neurological: Level of Consciousness is awake, alert, obeys commands, Oriented to person, place, time. Respiratory: Airway is patent Respiratory effort is even, unlabored, Respiratory pattern is regular, symmetrical. 09/16 00:35 General: Appears in no apparent distress, comfortable, Behavior is appropriate for age, jmb cooperative. Neurological: Level of Consciousness is awake, alert, obeys commands, Oriented to person, place, time. Respiratory: Airway is patent Respiratory effort is even, unlabored, Respiratory pattern is regular, symmetrical. 01:34 General: Appears in no apparent distress, comfortable, Behavior is appropriate for age, jmb cooperative, Patient ready for transfer to OR. . Neurological: Level of Consciousness is awake, alert, obeys commands, Oriented to person, place, time. Respiratory: Airway is patent Respiratory effort is even, unlabored, Respiratory pattern is regular, symmetrical. Vital Signs: 09/15 20:27 BP 162 / 110; Pulse 101; Resp 20; Temp 98.1(O); Pulse Ox 100% on R/A; Weight 78.47 kg elp (R); Height 5 ft. 4 in. (162.56 cm) (R); Pain 5/10; 22:15 BP 150 / 98 (man/); ms18 09/16 01:33 BP 156 / 92; Pulse 88; Resp 18; Temp 97.6(O); Pulse Ox 97% on R/A; Pain 0/10; jmb 09/15 20:27 Body Mass Index 29.70 (78.47 kg, 162.56 cm) elp Vitals: 09/15 20:27 Log In Time: September 15, 2016 at 20:25. el ED Course: 20:26 Patient visited by Sondra Grayson PCA. elp 20:26 DOUGIE Perkins is Private Physician. elp 20:26 Patient moved to Waiting elp 20:27 Patient visited by Sondra Grayson PCA. elp 20:27 Patient moved to Pre RCE elp 20:36 Triage Initiated rs3 21:24 Patient moved to Triage 1 ct3 21:34 [facility] ck7 21:34 Jose Bowen DO is Attending Physician. ck7 21:34 Patient visited by Chauncey De La Cruz RPA-C. ck7 21:59 Patient moved to I2 / M2 ct3 22:10 The patient / caregiver is instructed regarding the plan of care and ED course. patb 22:10 Hcg, Serum Quantitative Sent. jmb 22:10 Type & Screen Sent. jmb 22:10 MED Profile Sent. jmb 22:10 CBC with Diff Sent. jmb 22:10 Inserted saline lock: 20 gauge in right antecubital area and blood collected. The jmb patient tolerated the procedure well. Labs drawn. (by ED staff). Sent per order to lab. 22:12 Patient visited by Brendan Watson RN. jmb 22:15 Patient has correct armband on for positive identification. Placed in gown. Bed in low ms18 position. Call light in reach. Property sent home with patient. :Personal belongings accompany Pt. 22:57 Patient visited by Berndan Watson RN. jmjeremy 23:32 Patient visited by Brendan Watson RN. jmb 09/16 00:03 [facility] [place] Payment Agreement was scanned into [employer] and attached to record. hs2 00:10 Patient visited by Chauncey De La Cruz RPA-C. ck7 00:34 US 1st trimester Returned. EDMS 00:40 Patient visited by Chauncey De La Cruz RPA-C. ck7 00:50 [place], OB is Hospitalizing Provider. ck7 01:34 No procedures done that require assistance. jmb 01:50 Admission Orders was scanned into [employer] and attached to record. hs2 Administered Medications: 09/15 22:10 Drug: NS 0.9% 1000 ml [sodium chloride 0.9 % intravenous solution] Route: IV; Rate: jmb bolus; Site: right antecubital; Order Results: Lab Order: CBC with Diff; SPEC'M 09/15/16 22:06 Test: WHITE BLOOD COUNT; Value: 11.3; Range: 4.0-10.0; Abnormal: Above high normal; Units: K/mm3; Status: F Test: RED BLOOD COUNT; Value: 4.94; Range: 4.00-5.40; Units: M/mm3; Status: F Test: HEMOGLOBIN; Value: 13.3; Range: 12.0-16.0; Units: g/dl; Status: F Test: HEMATOCRIT; Value: 41.7; Range: 36.0-47.0; Units: %; Status: F Test: MEAN CORPUSCULAR VOLUME; Value: 84.6; Range: 80.0-96.0; Units: fl; Status: F Test: MEAN CORPUSCULAR HEMOGLOBIN; Value: 27.0; Range: 27.0-33.0; Units: pg; Status: F Test: MEAN CORPUSCULAR HGB CONC; Value: 31.9; Range: 32.0-36.5; Abnormal: Below low normal; Units: g/dl; Status: F Test: RED CELL DISTRIBUTION WIDTH; Value: 12.3; Range: 11.5-14.5; Units: %; Status: F Test: PLATELET COUNT, AUTOMATED; Value: 269; Range: 150-450; Units: k/mm3; Status: F Test: NEUTROPHILS %; Value: 55.2; Range: 36.0-66.0; Units: %; Status: F Test: LYMPH %; Value: 35.4; Range: 24.0-44.0; Units: %; Status: F Test: MONO %; Value: 4.4; Range: 0.0-5.0; Units: %; Status: F Test: EOS %; Value: 2.0; Range: 0.0-3.0; Units: %; Status: F Test: BASO %; Value: 0.6; Range: 0.0-1.0; Units: %; Status: F Test: LARGE UNSTAINED CELL %; Value: 2.3; Range: 0.0-4.0; Units: %; Status: F Test: NEUTROPHILS #; Value: 6.2; Range: 1.8-7.7; Units: K/mm3; Status: F Test: LYMPH #; Value: 4.0; Range: 1.5-6.5; Units: K/mm3; Status: F Test: MONO #; Value: 0.5; Range: 0.0-0.8; Units: K/mm3; Status: F Test: EOS #; Value: 0.2; Range: 0.0-0.50; Units: K/mm3; Status: F Test: BASO #; Value: 0.1; Range: 0.0-0.2; Units: K/mm3; Status: F Test: LARGE UNSTAINED CELL #; Value: 0.3; Range: 0.0-0.4; Units: K/mm3; Status: F Lab Order: MED Profile; SPEC'M 09/15/16 22:06 Test: GLUCOSE, FASTING; Value: 93; Range: 70-105; Units: MG/DL; Status: F Test: BLOOD UREA NITROGEN; Value: 10; Range: 7-18; Units: MG/DL; Status: F Test: CREATININE FOR GFR; Value: 0.78; Range: 0.55-1.02; Units: MG/DL; Status: F Test: GLOMERULAR FILTRATION RATE; Value: > 60.0; Range: >60; Status: F Test: SODIUM LEVEL; Value: 140; Range: 136-145; Units: MEQ/L; Status: F Test: POTASSIUM SERUM; Value: 3.5; Range: 3.5-5.1; Units: MEQ/L; Status: F Test: CHLORIDE LEVEL; Value: 104; Range: 98-107; Units: MEQ/L; Status: F Test: CARBON DIOXIDE LEVEL; Value: 27; Range: 21-32; Units: MEQ/L; Status: F Test: ANION GAP; Value: 9; Range: 8-16; Units: MEQ/L; Status: F Test: CALCIUM LEVEL; Value: 8.9; Range: 8.5-10.1; Units: MG/DL; Status: F Test Note: ; Units are mL/min/1.73 m2 Chronic Kidney Disease Staging per NKF: Stage I & II GFR >=60 Normal to Mildly Decreased Stage III GFR 30-59 Moderately Decreased Stage IV GFR 15-29 Severely Decreased Stage V GFR <15 Very Little GFR Left ESRD GFR <15 on LOFT WORKER 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 Lab Order: Type & Screen; SPEC'M 09/15/16 22:07 Test: BLOOD TYPE; Value: O POS; Status: F Test: AB SCREEN (INDIRECT MADIE)GEL; Value: NEGATIVE; Status: F Lab Order: Hcg, Serum Quantitative; SPEC'M 09/15/16 22:06 Test: HCG, SERUM QUANTITATIVE; Value: 100; Units: MIU/ML; Status: F Test Note: ; GESTATIONAL AGE APPROXIMATE HCG RANGE (MIU/ML) 0.2-1 WEEK 5-50 1-2 WEEKS 50-500 2-3 WEEKS 100-5,000 3-4 WEEKS 500-10,000 4-5 WEEKS 1,000-50,000 5-6 WEEKS 10,000-100,000 6-8 WEEKS 15,000-200,000 2-3 MONTHS 10,000-100,000 NON FEMALES LESS THAN 3.0 Patient samples may contain human heterophilic antibodies that could react with immunoassays to give falsely elevated or depressed results. This assay has been designed to minimize interference from heterophilic antibodies. Elevated hCG levels have also been associated with trophoblastic disease and nontrophoblastic neoplasms. The possibility of having these diseases should be considered before a diagnosis of is made. This test is not intended for use as a surrogate marker for aiding in the diagnosis or monitoring the treatment of cancer patients. Siemens Cequel Data methodology. Radiology Order: US 1st trimester Test: US 1st trimester REASON FOR EXAMINATION: R/O RETAINED PRODUCTS OF CONCEPTION; ; CLINICAL HISTORY: Bleeding, r/p RPOC..; .; TECHNIQUE: Transabdominal ultrasound of the pelvis was performed.; FINDINGS:; The uterus is anteverted.; Endometrial thickness is 33 mm which is hypervascuar. There is no IUP.; Both ovaries are identified without adnexal mass or pelvic fluid collection.; IMPRESSION:; Endometrial thickness is 33 mm which is hypervascuar. This is compatible with RPOC.; ; Outcome: 09/16 00:50 Decision to Hospitalize by Provider. ck7 01:34 Discharge Assessment: Patient awake, alert and oriented x 3. No cognitive and/or jmb functional deficits noted. Patient verbalized understanding of disposition instructions. Patient awake and alert. obeys commands, Oriented to person, place and time. Patient verbalized understanding of disposition instructions. Patient has no functional deficits. patient administered narcotics - no. The following High Risk Discharge criteria are identified: None. Admitted to OR accompanied by nurse, accompanied by tech, via stretcher, with chart. Condition: stable. Ultrasound Study completed. Property :Personal belongings accompany Pt. 01:58 Patient left the ED. b Signatures: Dispatcher [employer] Shellie MorenoRN RN rs3 Liss Coronado, HAND STONER HAND STONER ct3 Chauncey De La Cruz, RPA-C RPA-Cck7 Sondra Grayson, HAND STONER HAND STONER elp Brendan Watson RN RN jmb Smith, Mallory, RN RN ms18 Naheed Turcios, Reg Reg hs2 MTDD
[2016-09-16] MEDS ORDERED: miSOPROStol 200 MCG TAB (S0191) As Ordered ONE (02:15)
[2016-09-16] MEDS ORDERED: ONDANSETRON 4MG/2ML VIAL (J2405) As Ordered ONE (02:22)
[2016-09-16] MEDS ORDERED: KETOROLAC 60 MG/2 ML VIAL (J1885) As Ordered ONE (02:35)
[2016-09-16] MEDS ORDERED: METHYLERGONOVINE MALEATE 0.2 MG/ML VIAL (J2210) As Ordered ONE (02:38)
[2016-09-16] MEDS ORDERED: NORCO, ANEXSIA 5/325MG TABLET (HYDROcodone/ACETAMINOPHEN) As Ordered ONE (03:01)
[2016-09-16] MEDS: fentaNYL 100 MCG/2 ML INJECTION (J3010) IV PRN ×3 (03:02→04:29)
[2016-09-16] MEDS ORDERED: ONDANSETRON 4MG/2ML VIAL (J2405) IV PRN (03:30)
[2016-09-16] MEDS ORDERED: LR 1,000 ML IV SCH (03:30)
[2016-09-16] MEDS ORDERED: NORCO, ANEXSIA 5/325MG TABLET (HYDROcodone/ACETAMINOPHEN) PO PRN (03:30)
[2016-09-16] MEDS ORDERED: IBUP80TA PO (07:48)
[2016-09-16] MEDS ORDERED: NORC5TAB PO (07:48)
[2016-09-16] MEDS ORDERED: DOXYCYCLINE HYCLATE 100 MG TAB PO ONE (08:00)
--- NOTE | 2016-09-16 21:36 | RO ---
DATE OF PROCEDURE: 09/16/2016 PREOPERATIVE DIAGNOSIS: Missed with bleeding and retained products of conception POSTOPERATIVE DIAGNOSIS: Missed with bleeding and retained products of conception status post dilation and curettage. PROCEDURE: Suction dilation and curettage SURGEON: Bailey Frost MD ANESTHESIA: IV Sedation INDICATION FOR OPERATION: Karla is a 25-year-old, 2 (G), para (P) 0-0- 1-0 with ongoing spontaneous miscarriage that was being expectantly managed over time with appropriately declining hCG quant. She presented to the emergency room (ER) with sudden onset of heavy vaginal bleeding and on ultrasound was noted to have 3 cm of retained products of conception within her uterus, and determination was made for dilation and curettage to treat the retained products of conception. MATERIAL FORWARDED TO LABORATORY FOR EXAMINATION: Retained products of conception. DESCRIPTION OF FINDINGS: 8 week size anteverted uterus. Cervix visually 1 cm dilated. Scant blood in the vaginal vault but with the procedure a moderate amount of tissue was extracted from the uterus. INFECTION CLASSIFICATION: 2. ESTIMATED BLOOD LOSS: 100 mL. INTRAVENOUS (IV) FLUIDS: 500 mL lactated Ringer. URINE OUTPUT: No catheterization performed. DESCRIPTION OF OPERATION: After obtaining informed consent, Karla was taken to the operating room, where she underwent adequate IV sedation. She was placed in low lithotomy position, and perineum and vagina were prepped and draped in sterile fashion. She received 100 mg of IV doxycycline for prophylaxis against infection. [place] speculum was inserted into the vagina, and the anterior segment of the cervix was grasped with a single-tooth tenaculum. Uterus sounded to 11 cm. Cervix was sequentially dilated with Hanks dilators. A 7 mm suction curette was introduced to the fundus. Suction was activated at 60 cm of water. Approximately six passes of the suction curette were used to remove the intrauterine contents. A sharp curette was used. Good cry was noted in 360 degrees. Two final passes of the suction curette ensured removal of all intrauterine contents. Hemostasis was noted after the procedure. She was given one dose of 0.2 mg IM Methergine and then 800 mcg of Cytotec was placed rectally, as prophylaxis against bleeding. Tenaculum was removed, and there was hemostasis noted at the tenaculum sites. [place] speculum was removed. She was transferred to recovery room in good condition. All counts were correct times two. She will receive 200 mg of oral doxycycline approximately 8 hours after the procedure. BETH
--- NOTE | 2016-09-18 02:59 | EDDOCDS ---
Physician Documentation [facility] Name: Karla Greenwood Age: 25 yrs Sex: Female : 1990 Arrival Date: 09/15/2016 Time: 20:25 Bed I2 / M2 Private MD: Gregorio [facility] [place] Disposition: 09/16/16 00:50 Hospitalization ordered by Vikram Pederson OB for Inpatient Admission. Preliminary diagnosis is Retained portions of placenta and membranes, without hemorrhage. - Bed requested for Admit. - Status is Inpatient Admission. jmb - Condition is Stable. - Problem is new. - Symptoms have improved. Historical: - Allergies: Oxycodone HCl (itchy); - Home Meds: 1. none - PMHx: none; - PSHx: acl right knee; bone spur left ankle; D & C; - Social history: Smoking status: Patient states was never smoker of tobacco. No barriers to communication noted, The patient speaks fluent Tunisian. - Family history: Not pertinent. - : The pt / caregiver states he / she is not on anticoagulants. Home medication list is obtained from the patient. - Exposure Risk Screening:: None identified. 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 4 in. (162.56 cm) (R); Pain 5/10; 22:15 BP 150 / 98 (man/); ms18 09/16 01:33 BP 156 / 92; Pulse 88; Resp 18; Temp 97.6(O); Pulse Ox 97% on R/A; Pain 0/10; jmb 09/15 20:27 Body Mass Index 29.70 (78.47 kg, 162.56 cm) elp MDM: 09/15 21:59 IV Saline Lock ordered. ck7 21:59 NS 0.9% 1000 ml IV at bolus once ordered. ck7 21:59 Set up pelvic ordered. ck7 21:59 Recheck B/P ordered. ck7 22:01 US 1st trimester Ordered. EDMS 22:01 CBC with Diff Ordered. EDMS 22:01 MED Profile Ordered. EDMS 22:01 Type & Screen Ordered. EDMS 22:01 Hcg, Serum Quantitative Ordered. EDMS 23:25 CBC with Diff Reviewed. ck7 23:25 MED Profile Reviewed. ck7 23:25 Type & Screen Reviewed. ck7 23:25 Hcg, Serum Quantitative Reviewed. ck7 23:43 Financial registration complete. hs2 09/16 00:03 [facility] Payment Agreement was scanned into [employer] and attached to record. hs2 01:50 Admission Orders was scanned into [employer] and attached to record. hs2 20:12 T-Sheet-- Draft Copy was scanned into [employer] and attached to record. klr Administered Medications: 09/15 22:10 Drug: NS 0.9% 1000 ml [sodium chloride 0.9 % intravenous solution] Route: IV; Rate: jmb bolus; Site: right antecubital; Signatures: Dispatcher [employer] EDMS Shellie Seymour RN RN rs3 Chauncey De La Cruz, SHERRON-C RPA-Cck7 Brendan Watson RN RN jmb Naheed Turcios, Reg Reg hs2 Debi Sanderson klr The chart was reviewed and I authenticate all verbal orders and agree with the evaluation and treatment provided.Attachments: 09/16 00:03 [facility] Payment Agreement hs2 01:50 Admission Orders hs2 20:12 T-Sheet-- Draft Copy klr Chart Complete MTDD
--- NOTE | 2016-09-18 02:59 | EDDOCDS ---
Physician Documentation [facility] Name: Karla Greenwood Age: 25 yrs Sex: Female : 1990 Arrival Date: 09/15/2016 Time: 20:25 Bed I2 / M2 Private MD: Greg[place] [facility] [place]position: 09/16/16 00:50 Hospitalization ordered by Vikram Pederson OB for Inpatient Admission. Preliminary diagnosis is Retained portions of placenta and membranes, without hemorrhage. - Bed requested for Admit. - Status is Inpatient Admission. jmb - Condition is Stable. - Problem is new. - Symptoms have improved. Historical: - Allergies: Oxycodone HCl (itchy); - Home Meds: 1. none - PMHx: none; - PSHx: acl right knee; bone spur left ankle; D & C; - Social history: Smoking status: Patient states was never smoker of tobacco. No barriers to communication noted, The patient speaks fluent Uzbek. - Family history: Not pertinent. - : The pt / caregiver states he / she is not on anticoagulants. Home medication list is obtained from the patient. - Exposure Risk Screening:: None identified. 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 4 in. (162.56 cm) (R); Pain 5/10; 22:15 BP 150 / 98 (man/); ms18 09/16 01:33 BP 156 / 92; Pulse 88; Resp 18; Temp 97.6(O); Pulse Ox 97% on R/A; Pain 0/10; jmb 09/15 20:27 Body Mass Index 29.70 (78.47 kg, 162.56 cm) elp MDM: 09/15 21:59 IV Saline Lock ordered. ck7 21:59 NS 0.9% 1000 ml IV at bolus once ordered. ck7 21:59 Set up pelvic ordered. ck7 21:59 Recheck B/P ordered. ck7 22:01 US 1st trimester Ordered. EDMS 22:01 CBC with Diff Ordered. EDMS 22:01 MED Profile Ordered. EDMS 22:01 Type & Screen Ordered. EDMS 22:01 Hcg, Serum Quantitative Ordered. EDMS 23:25 CBC with Diff Reviewed. ck7 23:25 MED Profile Reviewed. ck7 23:25 Type & Screen Reviewed. ck7 23:25 Hcg, Serum Quantitative Reviewed. ck7 23:43 Financial registration complete. hs2 09/16 00:03 [facility] Payment Agreement was scanned into [employer] and attached to record. hs2 01:50 Admission Orders was scanned into [email or web address] and attached to record. hs2 20:12 T-Sheet-- Draft Copy was scanned into [employer] and attached to record. klr Administered Medications: 09/15 22:10 Drug: NS 0.9% 1000 ml [sodium chloride 0.9 % intravenous solution] Route: IV; Rate: jmb bolus; Site: right antecubital; Signatures: Dispatcher [employer] EDMS Shellie Seymour RN RN rs3 Chauncey De La Cruz, SHERRON-C RPA-Cck7 Brendan Watson RN RN jmb Naheed Turcios, Reg Reg hs2 Debi Sanderson klr The chart was reviewed and I authenticate all verbal orders and agree with the evaluation and treatment provided.Attachments: 09/16 00:03 [facility] Payment Agreement hs2 01:50 Admission Orders hs2 20:12 T-Sheet-- Draft Copy klr Chart Complete MTDD
--- NOTE | 2016-09-18 02:59 | EDDOCDS ---
Nurse's Notes [facility] Name: Karla Greenwood Age: 25 yrs Sex: Female : 1990 Arrival Date: 09/15/2016 Time: 20:25 Bed I2 / M2 Private MD: Gregorio [facility] [place] Diagnosis: Retained portions of placenta and membranes, without hemorrhage Presentation: 09/15 20:32 Presenting complaint: Patient states: was seen here 4 weeks ago for miscarriage. has rs3 been following up with SPORTS THERAPIST with HCG count. last count was 400 a week and a half ago. vaginal bleeding has been very minimal. heavy bleeding 30 mts ago, changed 3 joselin pads. reports of dizziness/abdominal cramping. Risk factors: The patient reports no loss of conciousness prior to arrival. This patient has not had a hysterectomy. This patient has not begun menopause. Adult Sepsis Screening: The patient does not have new or worsening altered mentation. Patient's respiratory rate is less than 22. Systolic blood pressure is greater than 100. Patient has a qSOFA score of 0- Negative Sepsis Screen. Suicide/Homicide risk assessment- the patient denies having any suicidal and/or homicidal ideations and does not present with any other emotional, behavioral or mental health complaints. Status: The patient is a dependent. Transition of care: patient was not received from another setting of care. 20:32 Acuity: MACKENZIE Level 3 rs3 20:32 Method Of Arrival: Walkin/Carried/Asstd rs3 Triage Assessment: 20:37 General: Appears in no apparent distress. Pain: Location: suprapubic area, right lower rs3 quadrant and left lower quadrant. Pt Declines HIV testing. : Reports vaginal bleeding that is heavy flow. SPORTS THERAPIST: 20:37 LMP 06/02/2016 rs3 Historical: - Allergies: Oxycodone HCl (itchy); - Home Meds: 1. none - PMHx: none; - PSHx: acl right knee; bone spur left ankle; D & C; - Social history: Smoking status: Patient states was never smoker of tobacco. No barriers to communication noted, The patient speaks fluent Qatari. - Family history: Not pertinent. - : The pt / caregiver states he / she is not on anticoagulants. Home medication list is obtained from the patient. - Exposure Risk Screening:: None identified. Screenin:10 Screening information is obtained from the patient. Fall risk: No risks identified. jmb Assistance ADL's: requires no assistance with activities of daily living. Abuse/DV Screen: The patient / caregiver reports he/she is: not in a situation that causes fear, pain or injury. Nutritional screening: No deficits noted. home support is adequate. 09/16 01:34 Advance Directives: Currently, there is no health care proxy. There is no active DNR jmb order. There is no living will. There is no Power of Online Project Manager. Assessment: 09/15 22:10 General: Appears uncomfortable, Behavior is appropriate for age, cooperative. Pain: jmb Location: abdomen and left lower quadrant and right lower quadrant and suprapubic area Pain currently is 8 out of 10 on a pain scale. Neurological: Level of Consciousness is awake, alert, obeys commands, Oriented to person, place, time, Surface Miner are equal bilaterally Speech is normal, Facial symmetry appears normal, Facial symmetry: tongue is midline. Cardiovascular: Capillary refill < 3 seconds Heart tones present Pulses are all present. Rhythm is regular. Respiratory: Airway is patent Respiratory effort is even, unlabored, Respiratory pattern is regular, symmetrical, Breath sounds are clear bilaterally. GI: Abdomen is non- distended Bowel sounds present X 4 quads. Abd is soft X 4 quads. : Patient reports 4 wet pads in one hour of blood. Derm: Skin is pink, warm & dry. Musculoskeletal: Range of motion intact in all extremities. 22:57 General: Appears in no apparent distress, comfortable, Behavior is appropriate for age, jmb cooperative. Neurological: Level of Consciousness is awake, alert, obeys commands, Oriented to person, place, time. Respiratory: Airway is patent Respiratory effort is even, unlabored, Respiratory pattern is regular, symmetrical. 23:31 General: Appears in no apparent distress, comfortable, Behavior is appropriate for age, jmb cooperative, Patient sitting on side of bed. No voiced complaints at this time. . Neurological: Level of Consciousness is awake, alert, obeys commands, Oriented to person, place, time. Respiratory: Airway is patent Respiratory effort is even, unlabored, Respiratory pattern is regular, symmetrical. 09/16 00:35 General: Appears in no apparent distress, comfortable, Behavior is appropriate for age, jmb cooperative. Neurological: Level of Consciousness is awake, alert, obeys commands, Oriented to person, place, time. Respiratory: Airway is patent Respiratory effort is even, unlabored, Respiratory pattern is regular, symmetrical. 01:34 General: Appears in no apparent distress, comfortable, Behavior is appropriate for age, jmb cooperative, Patient ready for transfer to OR. . Neurological: Level of Consciousness is awake, alert, obeys commands, Oriented to person, place, time. Respiratory: Airway is patent Respiratory effort is even, unlabored, Respiratory pattern is regular, symmetrical. Vital Signs: 09/15 20:27 BP 162 / 110; Pulse 101; Resp 20; Temp 98.1(O); Pulse Ox 100% on R/A; Weight 78.47 kg elp (R); Height 5 ft. 4 in. (162.56 cm) (R); Pain 5/10; 22:15 BP 150 / 98 (man/); ms18 09/16 01:33 BP 156 / 92; Pulse 88; Resp 18; Temp 97.6(O); Pulse Ox 97% on R/A; Pain 0/10; jmb 09/15 20:27 Body Mass Index 29.70 (78.47 kg, 162.56 cm) elp Vitals: 09/15 20:27 Log In Time: September 15, 2016 at 20:25. el ED Course: 20:26 Patient visited by Sondra Grayson PCA. elp 20:26 DOUGIE Perkins is Private Physician. elp 20:26 Patient moved to Waiting elp 20:27 Patient visited by Sondra Grayson PCA. elp 20:27 Patient moved to Pre RCE elp 20:36 Triage Initiated rs3 21:24 Patient moved to Triage 1 ct3 21:34 [facility]un[facility] De La [facility] ck7 21:34 Jose Bowen DO is Attending Physician. ck7 21:34 Patient visited by Chauncey De La Cruz RPA-C. ck7 21:59 Patient moved to I2 / M2 ct3 22:10 The patient / caregiver is instructed regarding the plan of care and ED course. patb 22:10 Hcg, Serum Quantitative Sent. jmb 22:10 Type & Screen Sent. jmb 22:10 MED Profile Sent. jmb 22:10 CBC with Diff Sent. jmb 22:10 Inserted saline lock: 20 gauge in right antecubital area and blood collected. The jmb patient tolerated the procedure well. Labs drawn. (by ED staff). Sent per order to lab. 22:12 Patient visited by Brendan Watson RN. jmb 22:15 Patient has correct armband on for positive identification. Placed in gown. Bed in low ms18 position. Call light in reach. Property sent home with patient. :Personal belongings accompany Pt. 22:57 Patient visited by Brendan Watson RN. jmjeremy 23:32 Patient visited by Brendan Watson RN. jmb 09/16 00:03 [facility] [place] Payment Agreement was scanned into [employer] and attached to record. hs2 00:10 Patient visited by Chauncey De La Cruz RPA-C. ck7 00:34 US 1st trimester Returned. EDMS 00:40 Patient visited by Chauncey De La Cruz RPA-C. ck7 00:50 Check, OB is Hospitalizing Provider. ck7 01:34 No procedures done that require assistance. jmb 01:50 Admission Orders was scanned into [employer] and attached to record. hs2 20:12 T-Sheet-- Draft Copy was scanned into [employer] and attached to record. klr Administered Medications: 09/15 22:10 Drug: NS 0.9% 1000 ml [sodium chloride 0.9 % intravenous solution] Route: IV; Rate: jmb bolus; Site: right antecubital; Order Results: Lab Order: CBC with Diff; SPEC'M 09/15/16 22:06 Test: WHITE BLOOD COUNT; Value: 11.3; Range: 4.0-10.0; Abnormal: Above high normal; Units: K/mm3; Status: F Test: RED BLOOD COUNT; Value: 4.94; Range: 4.00-5.40; Units: M/mm3; Status: F Test: HEMOGLOBIN; Value: 13.3; Range: 12.0-16.0; Units: g/dl; Status: F Test: HEMATOCRIT; Value: 41.7; Range: 36.0-47.0; Units: %; Status: F Test: MEAN CORPUSCULAR VOLUME; Value: 84.6; Range: 80.0-96.0; Units: fl; Status: F Test: MEAN CORPUSCULAR HEMOGLOBIN; Value: 27.0; Range: 27.0-33.0; Units: pg; Status: F Test: MEAN CORPUSCULAR HGB CONC; Value: 31.9; Range: 32.0-36.5; Abnormal: Below low normal; Units: g/dl; Status: F Test: RED CELL DISTRIBUTION WIDTH; Value: 12.3; Range: 11.5-14.5; Units: %; Status: F Test: PLATELET COUNT, AUTOMATED; Value: 269; Range: 150-450; Units: k/mm3; Status: F Test: NEUTROPHILS %; Value: 55.2; Range: 36.0-66.0; Units: %; Status: F Test: LYMPH %; Value: 35.4; Range: 24.0-44.0; Units: %; Status: F Test: MONO %; Value: 4.4; Range: 0.0-5.0; Units: %; Status: F Test: EOS %; Value: 2.0; Range: 0.0-3.0; Units: %; Status: F Test: BASO %; Value: 0.6; Range: 0.0-1.0; Units: %; Status: F Test: LARGE UNSTAINED CELL %; Value: 2.3; Range: 0.0-4.0; Units: %; Status: F Test: NEUTROPHILS #; Value: 6.2; Range: 1.8-7.7; Units: K/mm3; Status: F Test: LYMPH #; Value: 4.0; Range: 1.5-6.5; Units: K/mm3; Status: F Test: MONO #; Value: 0.5; Range: 0.0-0.8; Units: K/mm3; Status: F Test: EOS #; Value: 0.2; Range: 0.0-0.50; Units: K/mm3; Status: F Test: BASO #; Value: 0.1; Range: 0.0-0.2; Units: K/mm3; Status: F Test: LARGE UNSTAINED CELL #; Value: 0.3; Range: 0.0-0.4; Units: K/mm3; Status: F Lab Order: MED Profile; SPEC'M 09/15/16 22:06 Test: GLUCOSE, FASTING; Value: 93; Range: 70-105; Units: MG/DL; Status: F Test: BLOOD UREA NITROGEN; Value: 10; Range: 7-18; Units: MG/DL; Status: F Test: CREATININE FOR GFR; Value: 0.78; Range: 0.55-1.02; Units: MG/DL; Status: F Test: GLOMERULAR FILTRATION RATE; Value: > 60.0; Range: >60; Status: F Test: SODIUM LEVEL; Value: 140; Range: 136-145; Units: MEQ/L; Status: F Test: POTASSIUM SERUM; Value: 3.5; Range: 3.5-5.1; Units: MEQ/L; Status: F Test: CHLORIDE LEVEL; Value: 104; Range: 98-107; Units: MEQ/L; Status: F Test: CARBON DIOXIDE LEVEL; Value: 27; Range: 21-32; Units: MEQ/L; Status: F Test: ANION GAP; Value: 9; Range: 8-16; Units: MEQ/L; Status: F Test: CALCIUM LEVEL; Value: 8.9; Range: 8.5-10.1; Units: MG/DL; Status: F Test Note: ; Units are mL/min/1.73 m2 Chronic Kidney Disease Staging per NKF: Stage I & II GFR >=60 Normal to Mildly Decreased Stage III GFR 30-59 Moderately Decreased Stage IV GFR 15-29 Severely Decreased Stage V GFR <15 Very Little GFR Left ESRD GFR <15 on RAIL SPLITTER Lab Order: Type & Screen; [facility] 09/15/16 22:07 Test: BLOOD TYPE; Value: O POS; Status: F Test: AB SCREEN (INDIRECT MADIE)GEL; Value: NEGATIVE; Status: F Lab Order: Hcg, Serum Quantitative; [facility] 09/15/16 22:06 Test: HCG, SERUM QUANTITATIVE; Value: 100; Units: MIU/ML; Status: F Test Note: ; GESTATIONAL AGE APPROXIMATE HCG RANGE (MIU/ML) 0.2-1 WEEK 5-50 1-2 WEEKS 50-500 2-3 WEEKS 100-5,000 3-4 WEEKS 500-10,000 4-5 WEEKS 1,000-50,000 5-6 WEEKS 10,000-100,000 6-8 WEEKS 15,000-200,000 2-3 MONTHS 10,000-100,000 NON FEMALES LESS THAN 3.0 Patient samples may contain human heterophilic antibodies that could react with immunoassays to give falsely elevated or depressed results. This assay has been designed to minimize interference from heterophilic antibodies. Elevated hCG levels have also been associated with trophoblastic disease and nontrophoblastic neoplasms. The possibility of having these diseases should be considered before a diagnosis of is made. This test is not intended for use as a surrogate marker for aiding in the diagnosis or monitoring the treatment of cancer patients. [employer] methodology. Radiology Order: US 1st trimester Test: US 1st trimester REASON FOR EXAMINATION: R/O RETAINED PRODUCTS OF CONCEPTION; ; CLINICAL HISTORY: Bleeding, r/p RPOC..; .; TECHNIQUE: Transabdominal ultrasound of the pelvis was performed.; FINDINGS:; The uterus is anteverted.; Endometrial thickness is 33 mm which is hypervascuar. There is no IUP.; Both ovaries are identified without adnexal mass or pelvic fluid collection.; IMPRESSION:; Endometrial thickness is 33 mm which is hypervascuar. This is compatible with RPOC.; ; Outcome: 09/16 00:50 Decision to Hospitalize by Provider. ck7 01:34 Discharge Assessment: Patient awake, alert and oriented x 3. No cognitive and/or jmb functional deficits noted. Patient verbalized understanding of disposition instructions. Patient awake and alert. obeys commands, Oriented to person, place and time. Patient verbalized understanding of disposition instructions. Patient has no functional deficits. patient administered narcotics - no. The following High Risk Discharge criteria are identified: None. Admitted to OR accompanied by nurse, accompanied by tech, via stretcher, with chart. Condition: stable. Ultrasound Study completed. Property :Personal belongings accompany Pt. 01:58 Patient left the ED. jmb Signatures: Dispatcher [employer] Shellie Moreno RN RN rs3 Liss Coronado, SLEEP MANAGER SLEEP MANAGER ct3 Chauncey De La Cruz, RPA-C [id number] Sondra Grayson, SLEEP MANAGER SLEEP MANAGER elp Brendan Watson,RN RN jmb Ghada Gimenez RN RN [id number] Naheed Turcios, Reg Reg hs2 Debi Sanderson Chart Complete MTDD
== END 2016-09-16 09:50 | disposition home or self-care (01) ==
LOC: M ED 20:25 → M PED 20:26 → M OROP 09-16 01:49 → M PED 09-16 03:50 → M OROP 09-16 03:50 → M PED 09-16 09:50 → M OROP 09-16 09:50
PROVIDERS: ADMIT Obstetrics & Gynecology; ATTEND Obstetrics & Gynecology
DX: O02.1 Missed abortion (principal)
CPT/HCPCS: 36415; 59820; 76801; 80048; 84702; 85025; 86850; 86900; 86901; 88305; 99285; J1885; J2210; J2250; J2405; J3010

== ENCOUNTER 2016-11-11 19:00 | Emergency (ER) | payer OTHER ==
[~2016-11-11] VITALS: Ht 162.6 cm; Wt 77.1 kg
[~2016-11-11 19:00] MED LIST: IBUP80TA PO; NORC5TAB PO
[2016-11-11] MEDS ORDERED: ALEV220T26 PO (19:07)
[2016-11-11] MEDS ORDERED: METHOCARBAMOL 500 MG TAB PO ONE (19:15)
[2016-11-11] MEDS ORDERED: ACETAMINOPHEN TAB 650MG DOSE (2X325MG) PO ONE (19:30)
[2016-11-11 19:35] LABS: CONTROL LINE UCG INT CTR LINE PRESENT
[2016-11-11] MEDS ORDERED: methylPREDNISolone INJ 125 MG/2 ML VIAL (J2930) IV ONE (21:00)
[2016-11-11] MEDS ORDERED: MORPHINE 4 MG/ML 1ML SYRINGE IV ONE (21:00)
[2016-11-11] MEDS ORDERED: ONDANSETRON 4MG/2ML VIAL (J2405) IV ONE (21:00)
--- NOTE | 2016-11-11 22:50 | REPUSA ---
MRI of the lumbar spine without contrast Clinical statement: Pain. Left leg numbness. Technique: Multiecho multiplanar MRI images of the lumbar spine were obtained without administration of contrast. No comparison is available. Findings: The lumbar vertebral bodies are in satisfactory position and alignment. No fractures or dis locations are demonstrated. Normal heterogeneous bone marrow signal is noted. No osseous tumors are s een. The intervertebral disc heights are well maintained and demonstrate normal signal. The filum ter minale and conus medullaris appear unremarkable. The spinal cord demonstrates normal signal and conto ur. The surrounding soft tissues are within normal limits. At L3/L4, there is a small disc bulge with very tiny central disc protrusion, measuring 0.3 x 0.9 cm. There is no evidence of central canal stenosis. The neural foramen are patent. At L5/S1, there is a small disc bulge measuring 2 mm in AP diameter. There is no evidence of central canal stenosis. The neural foramen are patent. The other disc levels are unremarkable. Impression: 1. Very small central disc protrusion at L3/L4 with mild disc bulge. No evidence of central canal elise nosis or neural foraminal narrowing. 2. Minimal disc bulging at L5/S1. No evidence of central canal stenosis or neural foraminal narrowing .
[2016-11-11] MEDS ORDERED: ROBA500T PO (23:19)
[2016-11-11] MEDS ORDERED: ULTR50TA PO (23:19)
[2016-11-11 23:28] VITALS: BP 126/73
[2016-11-11] MEDS ORDERED: traMADol 50 MG TAB As Ordered ONE (23:34)
[2016-11-11] MEDS ORDERED: traMADol 50 MG TAB PO ONE (23:45)
--- NOTE | 2016-11-12 07:58 | REP ---
Clinical: Lower back pain . Technique: AP, lateral, bilateral oblique, and coned-down views. Findings: Alignment and lordosis is maintained. The vertebral bodies including transverse process and spinous processes are intact and normal. There is no evidence for acute fracture / compression injury or subluxation. No evidence for spondylolysis or spondylolisthesis. No significant degenerative change is noted. Impression: Normal lumbosacral spine radiograph series. Signed by Kenneth Stafford MD 11/12/2016 07:49 A
== END 2016-11-11 23:38 | disposition home or self-care (01) ==
LOC: M ED 19:38
DX: M51.26 Other intervertebral disc displacement, lumbar region (principal); M51.27 Other intervertebral disc displacement, lumbosacral region
CPT/HCPCS: 72110; 72148; 81001; 81025; 84703; 96374; 96375; 99283; J2405; J2930

== ENCOUNTER 2017-01-24 08:06 | Emergency (ER) | payer OTHER ==
[~2017-01-24] VITALS: Ht 162.6 cm; Wt 72.6 kg
[~2017-01-24 08:06] MED LIST changes: +ALEV220T26 PO; +NORC1TAB4 PO; -NORC5TAB PO; +ROBA500T PO; +ULTR50TA PO
[2017-01-24] MEDS ORDERED: PRE-TAB3 PO (08:13)
[2017-01-24] MEDS ORDERED: NS 1,000 ML IV ONE (08:45)
[2017-01-24] MEDS ORDERED: METOCLOPRAMIDE INJ 10MG/2ML VIAL (J2765) IV ONE (08:45)
[2017-01-24 09:34] LABS: BASO % 0.6 % (0.0-1.0); EOS # 0.1 K/mm3 (0.0-0.50); EOS % 0.9 % (0.0-3.0); LARGE UNSTAINED CELL # 0.2 K/mm3 (0.0-0.4); LARGE UNSTAINED CELL % 2.7 % (0.0-4.0); LYMPH # 2.2 K/mm3 (1.5-6.5); LYMPH % 23.1 % (24.0-44.0); MEAN CORPUSCULAR HGB CONC 32.7 g/dl (32.0-36.5); MEAN CORPUSCULAR VOLUME 82.7 fl (80.0-96.0); MONO # 0.5 K/mm3 (0.0-0.8); MONO % 5.6 % (0.0-5.0); NEUTROPHILS # 5.8 K/mm3 (1.8-7.7); NEUTROPHILS % 67.1 % (36.0-66.0); PLATELET COUNT, AUTOMATED 217 k/mm3 (150-450); RED CELL DISTRIBUTION WIDTH 12.9 % (11.5-14.5); WHITE BLOOD COUNT 8.6 K/mm3 (4.0-10.0)
[2017-01-24 10:09] LABS: ANION GAP 6 MEQ/L (8-16); BLOOD UREA NITROGEN 6 MG/DL (7-18); CALCIUM LEVEL 8.7 MG/DL (8.5-10.1); CARBON DIOXIDE LEVEL 26 MEQ/L (21-32); CHLORIDE LEVEL 105 MEQ/L (98-107); CREATININE FOR GFR 0.66 MG/DL (0.55-1.02); GLOMERULAR FILTRATION RATE > 60.0 (>60); GLUCOSE, FASTING 70 MG/DL (70-105); POTASSIUM SERUM 3.8 MEQ/L (3.5-5.1); SODIUM LEVEL 137 MEQ/L (136-145)
[2017-01-24] MEDS ORDERED: REGL10TA6 PO (10:18)
[2017-01-24 10:45] VITALS: BP 124/69
== END 2017-01-24 10:44 | disposition home or self-care (01) ==
LOC: M ED 08:34
DX: O21.9 Vomiting of pregnancy, unspecified (principal); Z3A.01 Less than 8 weeks gestation of pregnancy
CPT/HCPCS: 36415; 80048; 81001; 85025; 87086; 96361; 96374; 99284; J2765

== ENCOUNTER 2017-08-23 15:32 | Outpatient (CLI) | payer OTHER ==
[2017-08-23 18:25] LABS: HEMOGLOBIN 12.1 g/dl (12.0-16.0); MEAN CORPUSCULAR HEMOGLOBIN 26.4 pg (27.0-33.0); MEAN CORPUSCULAR HGB CONC 31.8 g/dl (32.0-36.5); PLATELET COUNT, AUTOMATED 160 10^3/uL (150-450); RED BLOOD COUNT 4.58 10^6/uL (4.00-5.40); RED CELL DISTRIBUTION WIDTH 13.8 % (11.5-14.5); WHITE BLOOD COUNT 10.9 10^3/uL (4.0-10.0)
[2017-08-23 18:41] LABS: ALT/SGPT 14 U/L (12-78); AST/SGOT 17 U/L (7-37); BILIRUBIN,TOTAL 0.3 MG/DL (0.2-1.0); CREATININE FOR GFR 0.58 MG/DL (0.55-1.02); GLOMERULAR FILTRATION RATE > 60.0 (>60); LDH LACTATE DEHYDROGENASE 182 U/L (84-246); URIC ACID 5.5 MG/DL (2.6-6.0)
[2017-08-23 19:41] LABS: CREATININE,RANDOM URINE 58.5 MG/DL
[2017-08-23 19:41] LABS: TOTAL PROTEIN,RANDOM URINE 13.8 MG/DL (0.0-12.0)
[2017-08-23] MEDS: FIORICET TAB PO (20:16)
== END 2017-08-23 23:20 | disposition home or self-care (01) ==
LOC: M LDO 15:32
DX: O99.89 Other specified diseases and conditions complicating pregnancy, childbirth and the puerperium (principal); R51 Headache; O13.3 Gestational [pregnancy-induced] hypertension without significant proteinuria, third trimester; Z79.899 Other long term (current) drug therapy; Z88.5 Allergy status to narcotic agent
CPT/HCPCS: 59025

== ENCOUNTER → 2018-12-23 | Outpatient (CLI) | payer OTHER ==
[~2018-12-23] MED LIST changes: +COLA100C5 PO; +DIBU1OIN TOP; +IBUP-1114 PO; +LABE10TAB PO; +MAPA500T2 PO; -NORC1TAB4 PO; +NORC1TAB7 PO; +PRE-TAB3 PO; +REGL10TA6 PO; +TYLE500T78 PO; -ULTR50TA PO; +ULTR50TA8 PO
[2018-12-23 12:16] LABS: BASO # 0.1 10^3/uL (0.0-0.2); BASO % 0.9 % (0.0-1.0); EOS # 0.1 10^3/uL (0.0-0.50); EOS % 1.5 % (0.0-3.0); HEMATOCRIT 38.7 % (36.0-47.0); HEMOGLOBIN 11.9 g/dl (12.0-15.5); LYMPH # 3.8 10^3/uL (1.5-6.5); LYMPH % 47.7 % (24.0-44.0); MEAN CORPUSCULAR HEMOGLOBIN 26.4 pg (27.0-33.0); MEAN CORPUSCULAR HGB CONC 30.7 g/dl (32.0-36.5); MEAN CORPUSCULAR VOLUME 85.8 fl (80.0-96.0); MONO # 0.7 10^3/uL (0.0-0.8); MONO % 8.1 % (0.0-5.0); NEUTROPHILS # 3.3 10^3/uL (1.8-7.7); NEUTROPHILS % 41.4 % (36.0-66.0); PLATELET COUNT, AUTOMATED 194 10^3/uL (150-450); RED BLOOD COUNT 4.51 10^6/uL (4.00-5.40)
[2018-12-23 12:23] LABS: ALBUMIN 3.9 GM/DL (3.2-5.2); ALT/SGPT 19 U/L (12-78); BILIRUBIN,TOTAL 0.7 MG/DL (0.2-1.0); BLOOD UREA NITROGEN 11 MG/DL (7-18); CALCIUM LEVEL 8.8 MG/DL (8.5-10.1); CARBON DIOXIDE LEVEL 28 MEQ/L (21-32); CHLORIDE LEVEL 108 MEQ/L (98-107); CREATININE FOR GFR 0.84 MG/DL (0.55-1.30); FREE T4 0.95 NG/DL (0.76-1.46); GLOMERULAR FILTRATION RATE > 60.0 (>60); GLUCOSE, FASTING 88 MG/DL (70-100); POTASSIUM SERUM 4.4 MEQ/L (3.5-5.1); SODIUM LEVEL 140 MEQ/L (136-145); TOTAL PROTEIN 6.7 GM/DL (6.4-8.2)
[2018-12-23 12:41] LABS: INR 1.11; PROTHROMBIN TIME 14.4 SECONDS (12.1-14.4)
[2018-12-23 12:47] LABS: COLLAGEN EPINEPHRINE 113 SECONDS (74-162)
== END ==
LOC: M SMT 10:22
PROVIDERS: ATTEND Physician Assistant
DX: R23.3 Spontaneous ecchymoses (principal)

== ENCOUNTER → 2019-05-14 | Outpatient (CLI) | payer OTHER ==
--- NOTE | 2019-05-14 19:22 | REP ---
Lumbar spine five views: Comparison is the lumbar spine series of t 11/11/2016 and the lumbar spine MRI dated 11/11/2016. The Vertebral body heights, interspacing alignment are normal. The pedicles, facets and sacroiliac articulations are unremarkable. There is no spondylolysis or spondylolisthesis. Impression: Negative plain film study of the lumbar spine. There is no interval change. Electronically Signed by Melquiades Kim MD 05/14/2019 07:13 P
== END ==
LOC: M LRY 18:22
PROVIDERS: ATTEND Nurse Practitioner Family
DX: M54.5 Low back pain (principal)
CPT/HCPCS: 72110; 81002; 81025; 96372; G0463; J1885

== ENCOUNTER → 2019-10-13 | Outpatient (REF) | payer OTHER ==
[~2019-10-13] MED LIST changes: +EXCETAB33 PO; +IBUP80TA; +KETO10TAB; +NITR100C2; +ONDA4TAB6
== END ==
LOC: M SFHCLERA 20:43
PROVIDERS: ATTEND Physician Assistant
DX: R30.0 Dysuria (principal)
CPT/HCPCS: 81002; 87088; 87186; 87804; G0463

== ENCOUNTER 2019-10-15 10:44 | Emergency (ER) | payer OTHER ==
[~2019-10-15] VITALS: Ht 162.6 cm; Wt 77.5 kg
[~2019-10-15 10:44] MED LIST changes: -EXCETAB33 PO; -IBUP80TA; -KETO10TAB; -NITR100C2; -ONDA4TAB6
[2019-10-15] MEDS ORDERED: EXCETAB33 PO (10:51)
[2019-10-15] MEDS ORDERED: NITR100C2 (10:51)
[2019-10-15] MEDS ORDERED: KETO10TAB (10:51)
[2019-10-15] MEDS ORDERED: ONDA4TAB6 (10:58)
[2019-10-15] MEDS ORDERED: IBUP80TA (10:58)
[2019-10-15] MEDS ORDERED: diphenhydrAMINE INJ 50MG/ML VIAL (J1200) IV ONE (11:15)
[2019-10-15] MEDS ORDERED: ACETAMINOPHEN 500 MG TAB PO ONE (11:15)
[2019-10-15] MEDS ORDERED: dexameTHASONE 4 MG/ML 1ML VIAL (J1100) IV ONE (11:15)
[2019-10-15] MEDS ORDERED: METOCLOPRAMIDE INJ 10MG/2ML VIAL (J2765) IV ONE (11:15)
[2019-10-15] MEDS ORDERED: NS 1,000 ML IV ONE (11:15)
[2019-10-15 11:26] LABS: BASO # 0.1 10^3/uL (0.0-0.2); BASO % 0.8 % (0.0-1.0); EOS # 0.1 10^3/uL (0.0-0.5); EOS % 1.4 % (0.0-3.0); HEMATOCRIT 37.2 % (36.0-47.0); HEMOGLOBIN 11.4 g/dl (12.0-15.5); LYMPH # 2.4 10^3/uL (1.5-5.0); LYMPH % 30.2 % (24.0-44.0); MEAN CORPUSCULAR HEMOGLOBIN 26.3 pg (27.0-33.0); MEAN CORPUSCULAR HGB CONC 30.6 g/dl (32.0-36.5); MEAN CORPUSCULAR VOLUME 85.9 fl (80.0-96.0); MONO # 0.6 10^3/uL (0.0-0.8); MONO % 7.1 % (0.0-5.0); NEUTROPHILS # 4.7 10^3/uL (1.5-8.5); NEUTROPHILS % 60.2 % (36.0-66.0); PLATELET COUNT, AUTOMATED 225 10^3/uL (150-450); RED BLOOD COUNT 4.33 10^6/uL (4.00-5.40); WHITE BLOOD COUNT 7.9 10^3/uL (4.0-10.0)
[2019-10-15 11:45] LABS: BLOOD UREA NITROGEN 7 MG/DL (7-18); CALCIUM LEVEL 9.1 MG/DL (8.5-10.1); CARBON DIOXIDE LEVEL 27 MEQ/L (21-32); CHLORIDE LEVEL 109 MEQ/L (98-107); CREATININE FOR GFR 0.78 MG/DL (0.55-1.30); GLOMERULAR FILTRATION RATE > 60.0 (>60); GLUCOSE, FASTING 81 MG/DL (70-100); POTASSIUM SERUM 3.7 MEQ/L (3.5-5.1); SODIUM LEVEL 140 MEQ/L (136-145)
--- NOTE | 2019-10-15 11:50 | REP ---
Head CT without contrast: History: Prolonged headache x 2 weeks. Comparison study: No comparison study. CT findings: Bone window settings demonstrate an intact bony calvarium. There is no evidence of skull fracture or incidental bony calvarial lesion. The visualized paranasal sinuses appear clear. No intraorbital abnormality is seen. On soft tissue window setting images; the lateral, third, and fourth ventricles are normal in size and position. Jiang-white differentiation pattern is normal above and below the tentorium. There are is no evidence of intracranial hemorrhage. No mass, edema, infarction, or midline shift is seen. No extra-axial fluid collection is appreciated. Impression: Negative noncontrast head CT. Electronically Signed by Thomas Chambers MD 10/15/2019 11:42 A
[2019-10-15 13:05] LABS: INFLUENZA A AMPLIFICATION NEGATIVE (NEGATIVE); INFLUENZA B AMPLIFICATION NEGATIVE (NEGATIVE)
[2019-10-15 13:23] VITALS: BP 126/78
== END 2019-10-15 13:24 | disposition home or self-care (01) ==
LOC: M ED 10:44
DX: R51 Headache (principal); Z79.899 Other long term (current) drug therapy; Z79.82 Long term (current) use of aspirin; Z88.5 Allergy status to narcotic agent
CPT/HCPCS: 70450; 80048; 85025; 87502; 96361; 96374; 96375; 99284; J1100; J1200; J2765

== ENCOUNTER → 2019-11-15 | Outpatient (REF) | payer OTHER ==
[~2019-11-15] MED LIST changes: +EXCETAB33 PO; +IBUP80TA; +KETO10TAB; +NITR100C2; +ONDA4TAB6
[2019-11-16 12:51] LABS: CHLAMYDIA DNA AMPLIFICATION NEGATIVE (NEGATIVE); GC DNA AMPLIFICATION NEGATIVE (NEGATIVE)
== END ==
LOC: M SFHCLERA 12:55
PROVIDERS: ATTEND Nurse Practitioner Family
DX: R10.9 Unspecified abdominal pain (principal)
CPT/HCPCS: 81002; 81025; 87086; 87661; G0463

== ENCOUNTER → 2019-11-17 | Outpatient (REF) | payer OTHER | LOC: M LAB REF 16:57 | PROVIDERS: ATTEND Family Medicine | DX: M54.5 Low back pain (principal) ==

== ENCOUNTER → 2020-01-25 | Outpatient (REF) | payer OTHER | LOC: M SFHCLERA 12:53 | PROVIDERS: ATTEND Physician Assistant | DX: R30.0 Dysuria (principal) | CPT/HCPCS: 81002; 81025; 87088; 87186; G0463 ==